=== PATIENT | male | born 1985 | race Caucasian/White ===

== ENCOUNTER 2018-06-03 11:11 | Emergency (ER) | payer OTHER ==
[~2018-06-03] VITALS: Ht 182.9 cm; Wt 106.8 kg
[2018-06-03 11:12] VITALS: Ht 182.9 cm; Wt 106.8 kg
[2018-06-03] MEDS ORDERED: LIDOCAINE 1% BUFFERED INJ 20 ML VIAL ONE (11:26)
[2018-06-03] MEDS ORDERED: DIPHTHERIA/TETANUS/PERTUSSIS 0.5 ML SYR/VIAL IM. ONE (11:45)
[2018-06-03] MEDS ORDERED: LIDO/EPINEPHRINE/SOD BICARB 20 ML VIAL INFIL ONE (11:45)
[2018-06-03] MEDS ORDERED: KETOROLAC TROMETHAMINE 60 MG/2 ML VIAL IM STA (11:49)
[2018-06-03] MEDS ORDERED: DIPH1TAB87 PO (12:05)
--- NOTE | 2018-06-03 12:51 | DIAGNOSTIC IMAGING REPORT ---
LEFT FEMUR 3 VIEWS HISTORY: Left femur pain. LEFT, EVAL FX COMPARISON: None. FINDINGS: There is no fracture or dislocation. Soft swelling within the anterior distal thigh. No radiopaque foreign bodies. IMPRESSION: No fracture or dislocation within the left femur. Electronically signed by: Joel Be M.D. 06/03/2018 12:49 PM Dictated Date/Time: 06/03/2018 12:47 PM
--- NOTE | 2018-06-03 14:04 | EMERGENCY ROOM VISIT NOTE ---
ED Visit Note First contact with patient: 11:28 CHIEF COMPLAINT: Left upper thigh laceration at work 1 hour ago HISTORY OF PRESENT ILLNESS: Patient is an otherwise healthy 32-year-old male who presents the emergency department accompanied by his significant other for evaluation of a left upper thigh laceration that occurred about an hour ago. 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 He states that he was hit in the left thigh with a bucket of a tractor, and pinched between the bucket and the tailgate of another vehicle. His pants were completely torn. He has a laceration to the left upper thigh. Bleeding has been controlled. He notes a constant, aching pain in the left thigh that he rates a 4/10. He was able to bear weight after the incident but it was difficult. He denies any numbness or tingling radiating down the left leg. He is unsure of his last tetanus vaccination. REVIEW OF SYSTEMS: Review of systems as per HPI. All other systems reviewed were negative. 10 systems reviewed. PMH: Electronic medical records are reviewed and summarized as above/below. See Problem List. Unsure of his last tetanus. SOCIAL HISTORY: Patient living at home with his girlfriend and daughter. Uses chewing tobacco. PHYSICAL EXAM: Vital Signs: Reviewed Nurse's notes. CONSTITUTIONAL: Patient is a slightly anxious, otherwise well-appearing 32-year-old male who is awake and alert and in moderate distress due to his stated complaint. INTEGUMENTARY: Examination of the proximal medial left thigh note an 8.5 cm gaping laceration with subcutaneous tissue present. He does have some significant ecchymosis and abrasions surrounding. No foreign material in the wound. No active bleeding. MUSCULOSKELETAL: Patient has tenderness to palpation of the left thigh, around the site of the laceration. Left knee and left hip are nontender to palpation. Hip and knee range of motion are full. Patient antalgic gait. The left lower extremity is neurovascularly intact. EMERGENCY DEPARTMENT COURSE: The patient was seen and examined as above. He was medicated with Toradol 60 mg IM. He declined narcotics. X-rays of the left femur were obtained and negative for acute fracture or bony abnormality. Using sterile technique, the wound was prepped with Betadine and draped sterilely. Wound was anesthetized with 1% buffered lidocaine with epinephrine. When adequate anesthesia was obtained, the wound was explored thoroughly. There was significant subcutaneous tissue present, subcu could be removed, and the fascial layer of the anterior thigh was visible, but there was no muscular or fascial injury. Wound was irrigated copiously using normal saline solution under high pressure irrigation. The subcutaneous layers were reapproximated using multiple 2-0 Vicryl, then the skin was reapproximated using 15 skin brent. Verbal and written wound care instructions were outlined with the patient and his significant other, as well as signs and symptoms of compartment syndrome for which the patient has not at this time. He was placed on crutches. His wound was dressed with bacitracin and a light dressing, then his thigh was wrapped with an Alexis wrap and a hip spica fashion. He was instructed on a weight-bear as tolerated gait using the crutches. He was advised to re- check with orthopedics as covered by his Worker's Compensation coverage later this week for recheck of his injury and wound, and to be cleared to return to work. Differential diagnoses entertained femur fracture, laceration, crush injury, compartment syndrome, nerve or vascular compromise, among others. Medication reconciliation: I attest that I have personally reviewed the patient' s current medication list. Blood pressure screening: Patient was found to have a slightly elevated blood pressure due to circumstances. I do not believe that the patient requires hypertension monitoring. LEFT FEMUR 3 VIEWS HISTORY: Left femur pain. LEFT, EVAL FX COMPARISON: None. FINDINGS: There is no fracture or dislocation. Soft swelling within the anterior distal thigh. No radiopaque foreign bodies. IMPRESSION: No fracture or dislocation within the left femur. Current/Historical Medications Scheduled Diphenhydramine Hcl (Benadryl Allergy), 1 TAB PO UD Scheduled PRN Ibuprofen Tab (Motrin), 800 MG PO TIDM PRN for Pain Allergies Coded Allergies: No Known Allergies (Unverified , 06/03/18) Vital Signs Date Time Temp Pulse Resp B/P (MAP) Pulse Ox O2 Delivery O2 Flow Rate FiO2 06/03/18 14:35 36.7 76 16 131/77 96 06/03/18 14:34 76 16 131/77 96 Room Air 06/03/18 12:35 76 16 140/80 96 Room Air 06/03/18 11:12 36.7 106 18 158/98 96 Room Air Medications Administered Medications (Trade) Dose Ordered Sig/Jett Route Start Time Stop Time Status Last Admin Dose Admin Diphtheria/ Pertussis/Tetanus Vacc (Adacel Inj) 0.5 ml ONCE ONCE IM. 06/03/18 11:45 06/03/18 11:46 DC 06/03/18 12:31 0.5 ML Ketorolac Tromethamine (Toradol Inj) 60 mg NOW STAT IM 06/03/18 11:49 06/03/18 11:51 DC 06/03/18 12:30 60 MG Departure Information Impression Primary Impression: Laceration of left thigh Additional Impressions: Crush injury of leg Work related injury Prescriptions Ibuprofen Tab (MOTRIN) 800 Mg Tab 800 MG PO TIDM Y for Pain, #90 TAB Prov: Stepahni Monte PA 06/03/18 Referrals No Doctor, Assigned (PCP) Patient Instructions [facility] Additional Instructions Ibuprofen(Motrin, Advil) may be used for fever or pain. Use 800mg 3 times daily with food as needed. Avoid using more than 2400mg in a 24 hour period. Do not use 2400mg per day for more than three consecutive days without physician direction. Prolonged inappropriate use can lead to stomach upset or ulcers. This medication can be taken if you need to drive, work, or perform activities which may be dangerous when taking narcotic pain medication. (AND/OR) Acetaminophen(Tylenol) may be used for fever or pain. Use 1000mg every six hours as needed. Avoid using more than 3000mg in a 24 hour period. This medication can be taken if you need to drive, work, or perform activities which may be dangerous when taking narcotic pain medication. Ice compresses for 20 minutes at a time four times daily for 2-3 days. Use the crutches as instructed. Use the Alexis wrap for support and compression to help reduce swelling and bruising. Rest and elevate your injury. Keep wound clean and dry. Do not allow any crusting or dried blood to accumulate on brent. Clean gently with mild soap and water daily. Do not immerse in standing water. Use an antibiotic ointment for 3-4 days, then let wound dry. Staple removal in 14 days. Continue current medications. Return to the ER immediately for any numbness, tingling, severe pain, extreme swelling in the extremity or for any signs of infection including increasing redness, warmth, puslike drainage. Follow-up with orthopedic surgery as covered by your Worker's Compensation insurance in 2-3 days for recheck of your injury and wound recheck, and to be cleared to return to work. Problem Qualifiers Primary Impression: Laceration of left thigh Encounter type: initial encounter Qualified Codes: S71.112A - Laceration without foreign body, left thigh, initial encounter Additional Impressions: Crush injury of leg Encounter type: initial encounter Laterality: left Qualified Codes: S87.82XA - Crushing injury of left lower leg, initial encounter
[2018-06-03] MEDS ORDERED: IBUP-1451 PO (14:06)
[2018-06-03 14:35] VITALS: BP 131/77; PULSE 76; TEMP 36.7; O2SAT 96
== END 2018-06-03 14:37 | disposition home or self-care (01) ==
LOC: C.EDB 11:12 → C.EDD 14:37
DX: S71.112A Laceration without foreign body, left thigh, initial encounter (principal); S87.82XA Crushing injury of left lower leg, initial encounter; W23.0XXA Caught, crushed, jammed, or pinched between moving objects, initial encounter; Y99.0 Civilian activity done for income or pay; Z23 Encounter for immunization

== ENCOUNTER 2018-06-08 21:58 | Emergency (ER) | payer OTHER ==
[~2018-06-08] VITALS: Ht 182.9 cm; Wt 106.3 kg
[~2018-06-08 21:58] MED LIST: DIPH1TAB87 PO; IBUP-1451 PO
[2018-06-08 22:03] VITALS: TEMP 36.8; Ht 182.9 cm; Wt 106.3 kg
[2018-06-08] MEDS ORDERED: SULFAMETHOXAZOLE/TRIMETHOPRIM DS 800/160MG TAB PO STA (22:15)
[2018-06-08] MEDS ORDERED: CEFTRIAXONE SOD INJ 1 GM ADDVIAL IV STA (22:15)
--- NOTE | 2018-06-08 22:17 | EMERGENCY ROOM VISIT NOTE ---
History Report prepared by Catherine: Miguel Clark Under the Supervision of: Dr. Onur Santacruz M.D. First contact with patient: 22:07 Chief Complaint: INFECTION Stated Complaint: INFECTION LEFT THIGH History of Present Illness The patient is a 32 year old male who presents to the Emergency Room with complaints of a possible left thigh infection and pain. The patient notes a few days ago he injured his leg and it required brent to be placed at another facility due to the laceration that occurred. He states he followed up with Orthopedics yesterday. He states he hasn't been prescribed antibiotics for this. He states the past x24 hours he has started to feel chilled and increased pain. He denies a fever. The patient also does not a cough the past few days. Source of History: patient Onset: few days Position: leg (left) Symptom Intensity: moderate Quality: ache Timing: constant Associated Symptoms: + chills, + cough, No fevers, No chest pain, No SOB, No nausea, No vomiting, No abdominal pain, No diarrhea, No urinary symptoms Review of Systems See HPI for pertinent positives & negatives. A total of 10 systems reviewed and were otherwise negative. Constitutional: + chills, No fever Respiratory: + cough, No shortness of breath Cardiovascular: No chest pain Abdomen: No pain, No nausea, No vomiting, No diarrhea Integumentary: No rash Past Medical & Surgical Medical Problems: (1) No Known Active Medical Problems Social History Smoking Status: Never Smoker Current/Historical Medications Scheduled Bacitracin (Topical) (Bacitracin), 1 APPLN TOP BID Cephalexin Monohydrate (Keflex), 500 MG PO QID Sulfa/Trimethoprim (Bactrim Ds 800MG/160MG), 1 TAB PO BID Scheduled PRN Acetaminophen (Tylenol), 1,000 MG PO Q6H PRN for Pain Diphenhydramine Hcl (Benadryl Allergy), 25 MG PO UD PRN for Allergic Reaction Ibuprofen Tab (Motrin), 800 MG PO TIDM PRN for Pain Allergies Coded Allergies: No Known Allergies (Unverified , 06/03/18) Physical Exam Vital Signs Date Time Temp Pulse Resp B/P (MAP) Pulse Ox O2 Delivery O2 Flow Rate FiO2 06/09/18 01:10 81 139/58 99 06/09/18 00:00 66 126/76 99 Room Air 06/08/18 22:03 36.8 93 18 153/90 97 Room Air Physical Exam GENERAL: Awake, alert, well-appearing, in no acute distress HENT: Normocephalic, atraumatic. Oropharynx unremarkable. EYES: Normal conjunctiva. Sclera non-icteric. NECK: Supple. No nuchal rigidity. FROM. No JVD. RESPIRATORY: Clear to auscultation. CARDIAC: Regular rate, normal rhythm. Extremities warm and well perfused. Pulses equal. ABDOMEN: Soft, non-distended. No tenderness to palpation. No rebound or guarding. No masses. RECTAL: Deferred. MUSCULOSKELETAL: Chest examination reveals no tenderness. The back is symmetrical on inspection without obvious abnormality. There is no CVA tenderness to palpation. No joint edema. LOWER EXTREMITIES: Calves are equal size bilaterally and non-tender. No edema. No discoloration. NEURO: Normal sensorium. No sensory or motor deficits noted. SKIN: large what appears to be hematoma extending away from the laceration itself and extends down into the lower thigh with a large amount of bruising; the wound itself appears to be healing well. Medical Decision & Procedures ER Provider Diagnostic Interpretation: CT extremity of the left lower: No organized fluid collections or abscess. There is no area of low density fluid immediately superficial to the anterior thigh musculature within the deeper portion of the subcutaneous fat. Neurovascular structures are unremarkable. No adenopathy no other masses. No suspicious radiopaque foreign bodies. No bony abnormalities. Laboratory Results 06/08/18 22:29 Red Blood Count 4.80, Mean Corpuscular Volume 93.3, Mean Corpuscular Hemoglobin 33.1, Mean Corpuscular Hemoglobin Concent 35.5, Mean Platelet Volume 11.0, Neutrophils (%) (Auto) 67.9, Lymphocytes (%) (Auto) 18.6, Monocytes (%) (Auto) 9.1, Eosinophils (%) (Auto) 4.0, Basophils (%) (Auto) 0.1, Neutrophils # (Auto) 5.09, Lymphocytes # (Auto) 1.39, Monocytes # (Auto) 0.68, Eosinophils # (Auto) 0.30, Basophils # (Auto) 0.01 06/08/18 22:29 Test 06/08/18 22:29 06/08/18 23:55 White Blood Count 7.49 K/uL (4.8-10.8) Red Blood Count 4.80 M/uL (4.7-6.1) Hemoglobin 15.9 g/dL (14.0-18.0) Hematocrit 44.8 % (42-52) Mean Corpuscular Volume 93.3 fL (80-100) Mean Corpuscular Hemoglobin 33.1 pg (25-34) Mean Corpuscular Hemoglobin Concent 35.5 g/dl (32-36) Platelet Count 211 K/uL (130-400) Mean Platelet Volume 11.0 fL (7.4-10.4) Neutrophils (%) (Auto) 67.9 % Lymphocytes (%) (Auto) 18.6 % Monocytes (%) (Auto) 9.1 % Eosinophils (%) (Auto) 4.0 % Basophils (%) (Auto) 0.1 % Neutrophils # (Auto) 5.09 K/uL (1.4-6.5) Lymphocytes # (Auto) 1.39 K/uL (1.2-3.4) Monocytes # (Auto) 0.68 K/uL (0.11-0.59) Eosinophils # (Auto) 0.30 K/uL (0-0.5) Basophils # (Auto) 0.01 K/uL (0-0.2) RDW Standard Deviation 42.1 fL (36.4-46.3) RDW Coefficient of Variation 12.3 % (11.5-14.5) Immature Granulocyte % (Auto) 0.3 % Immature Granulocyte # (Auto) 0.02 K/uL (0.00-0.02) Prothrombin Time 10.1 SECONDS (9.0-12.0) Prothromb Time International Ratio 1.0 (0.9-1.1) Anion Gap 8.0 mmol/L (3-11) Est Creatinine Clear Calc Drug Dose 136.6 ml/min Estimated GFR () 119.0 Estimated GFR (Non- 102.7 BUN/Creatinine Ratio 18.8 (10-20) Calcium Level 9.0 mg/dl (8.5-10.1) Total Bilirubin 0.4 mg/dl (0.2-1) Direct Bilirubin 0.1 mg/dl (0-0.2) Aspartate Amino Transf (AST/SGOT) 31 U/L (15-37) Alanine Aminotransferase (ALT/SGPT) 66 U/L (12-78) Alkaline Phosphatase 67 U/L (45-117) Total Creatine Kinase 98 U/L (39-308) Total Protein 8.4 gm/dl (6.4-8.2) Albumin 3.8 gm/dl (3.4-5.0) Lipase 141 U/L (73-393) Urine Color YELLOW Urine Appearance CLEAR (CLEAR) Urine pH 7.0 (4.5-7.5) Urine Specific [place] 1.010 (1.000-1.030) Urine Protein NEG (NEG) Urine Glucose (UA) NEG (NEG) Urine Ketones NEG (NEG) Urine Occult Blood NEG (NEG) Urine Nitrite NEG (NEG) Urine Bilirubin NEG (NEG) Urine Urobilinogen NEG (NEG) Urine Leukocyte Esterase NEG (NEG) Medications Administered Medications (Trade) Dose Ordered Sig/Jett Route Start Time Stop Time Status Last Admin Dose Admin Ceftriaxone Sodium (Rocephin Inj) 1 gm NOW STAT IV 06/08/18 22:15 06/08/18 22:16 DC 06/08/18 23:17 1 GM Trimethoprim/ Sulfamethoxazole (Septra Ds 800/ 160MG Tab) 1 tab NOW STAT PO 06/08/18 22:15 06/08/18 22:16 DC 06/08/18 23:17 1 TAB Medical Decision This is a 32-year-old male who presents emergency department complaining of subjective fevers and chills at home. The patient had brent applied to a thigh laceration. He did follow-up with orthopedics however did not receive any antibiotics for the thigh. He has not had any drainage coming from the wound. Here in the emergency department an IV was established. I will note that the patient is afebrile here and does not have an elevation in his white blood cell count. Regardless he was started on Rocephin and Bactrim here. We did obtain a CAT scan of the patient's lower extremity. This was read by stat read as no free fluid collections. In addition the patient does not have fever here and with no white blood cell count I feel he can be safely discharged home. There is no evidence of infection at the staple site and there is no pus on physical examination. I will place the patient on Keflex and Bactrim and stressed the need for follow-up with Dr. Witt's office. Patient was in agreement with the treatment plan. Medication Reconcilliation Current Medication List: was personally reviewed by me Blood Pressure Screening Patient's blood pressure: Elevated blood pressure Blood pressure disposition: Referred to PCP Impression Primary Impression: Laceration of left thigh Scribe Attestation The scribe's documentation has been prepared under my direction and personally reviewed by me in its entirety. I confirm that the note above accurately reflects all work, treatment, procedures, and medical decision making performed by me. Departure Information Dispostion Home / Self-Care Prescriptions Sulfa/Trimethoprim (Bactrim Ds 800MG/160MG) Tab 1 TAB PO BID for 10 Days, #20 TAB Prov: Onur Santacruz MD 06/09/18 Cephalexin Monohydrate (KEFLEX) 500 Mg Cap 500 MG PO QID for 10 Days, #40 CAP Prov: Onur Santacruz MD 06/09/18 Bacitracin (Topical) (BACITRACIN) 500 Unit/Gm Oin 1 APPLN TOP BID for 7 Days, #30 GM Prov: Onur Santacruz MD 06/09/18 Referrals No Doctor, Assigned (PCP) Patient Instructions My [facility] Problem Qualifiers Primary Impression: Laceration of left thigh Encounter type: initial encounter Qualified Codes: S71.112A - Laceration without foreign body, left thigh, initial encounter
[2018-06-08] MEDS ORDERED: OPTIRAY 320 IV PRN (22:30)
[2018-06-08] MEDS ORDERED: ACET-1256 PO (22:32)
[2018-06-08 22:48] LABS: BASO % 0.1 %; BASO ABS # 0.01 K/uL (0-0.2); HEMATOCRIT 44.8 % (42-52); HEMOGLOBIN 15.9 g/dL (14.0-18.0); IG# 0.02 K/uL (0.00-0.02); LYMPH % 18.6 %; LYMPH ABS # 1.39 K/uL (1.2-3.4); MEAN CELL VOLUME 93.3 fL (80-100); MEAN CORPUSCULAR HEMOGLOBIN 33.1 pg (25-34); MEAN CORPUSCULAR HGB CONC 35.5 g/dl (32-36); MONO % 9.1 %; MONO ABS # 0.68 K/uL (0.11-0.59); NEUT % 67.9 %; NEUT ABS # 5.09 K/uL (1.4-6.5); PLATELET COUNT 211 K/uL (130-400); RED CELL DISTRIBUTION WIDTH CV 12.3 % (11.5-14.5); RED CELL DISTRIBUTION WIDTH SD 42.1 fL (36.4-46.3); WHITE BLOOD COUNT 7.49 K/uL (4.8-10.8)
[2018-06-08 23:08] LABS: ALBUMIN 3.8 gm/dl (3.4-5.0); CREATININE 0.96 mg/dl (0.60-1.40); POTASSIUM 4.2 mmol/L (3.5-5.1); TOTAL PROTEIN 8.4 gm/dl (6.4-8.2)
[2018-06-09] MEDS ORDERED: BACI500O11 TOP (00:57)
[2018-06-09] MEDS ORDERED: SULF800T23 PO (00:57)
[2018-06-09] MEDS ORDERED: CEPH500C2 PO (00:57)
[2018-06-09 01:10] VITALS: BP 139/58; PULSE 81; O2SAT 99
--- NOTE | 2018-06-09 08:29 | DIAGNOSTIC IMAGING REPORT ---
CT OF THE LEFT THIGH WITH CONTRAST CLINICAL HISTORY: Hematoma. Left thigh infection. COMPARISON STUDY: Left femur radiographs June 03, 2018. TECHNIQUE: Axial images of the left thigh were obtained following intravenous injection of 118 cc Optiray 320 IV. Sagittal and coronal reconstructions were viewed. FINDINGS: No acute fracture of the left femur is identified. No radiopaque foreign body is noted. There is no evidence for osteomyelitis of the left femur. Skin brent within the anterior left thigh are noted with a small amount of subcutaneous gas. There is a small amount of low-attenuation fluid overlying the fascia, overlying the left rectus femoris and sartorius muscles. There may be minimal fluid within the anterior aspect of the left rectus femoris. This is suboptimally assessed by CT. No rim-enhancing fluid collection is identified. IMPRESSION: 1. No acute fracture or evidence of osteomyelitis within the left femur. 2. Skin brent within a laceration of the left thigh with a small amount of subcutaneous gas. No radiopaque foreign body. 3. Low-attenuation fluid along the fascia overlying the left rectus femoris and sartorius muscles. This fluid is nonspecific and sterility cannot be assessed by CT but no rim enhancement to suggest abscess. Possible small amount of fluid within the rectus femoris. A muscular injury cannot be excluded. Electronically signed by: James Ray M.D. 06/09/2018 8:28 AM Dictated Date/Time: 06/09/2018 8:18 AM
[2018-06-10] MEDS ORDERED: IBUP-1451 PO (21:01)
[2018-06-10] MEDS ORDERED: SULF800T23 PO (21:02)
[2018-06-10] MEDS ORDERED: CEPH500C2 PO (21:04)
[2018-06-10] MEDS ORDERED: BACI500O11 TOP (21:05)
== END 2018-06-09 01:11 | disposition home or self-care (01) ==
LOC: C.EDB 22:01 → C.EDA 06-09 01:11
DX: R50.9 Fever, unspecified (principal); S71.112A Laceration without foreign body, left thigh, initial encounter; X58.XXXA Exposure to other specified factors, initial encounter; R03.0 Elevated blood-pressure reading, without diagnosis of hypertension

== ENCOUNTER 2018-06-10 20:32 | Inpatient (IN) | payer OTHER, BC ==
[~2018-06-10] VITALS: Ht 182.9 cm; Wt 106.7 kg
[~2018-06-10 20:32] MED LIST changes: +ACET-1256 PO; +BACI500O11 TOP; +CEPH500C2 PO; +SULF800T23 PO
[2018-06-10] MEDS ORDERED: IBUP-1451 PO (21:01)
[2018-06-10] MEDS ORDERED: SULF800T23 PO (21:02)
[2018-06-10] MEDS ORDERED: CEPH500C2 PO (21:04)
[2018-06-10] MEDS ORDERED: BACI500O11 TOP (21:05)
--- NOTE | 2018-06-10 21:22 | EMERGENCY ROOM VISIT NOTE ---
History Report prepared by Catherine: Eve Butterfield Under the Supervision of: Dr. Sanford Ryan M.D. First contact with patient: 21:07 Chief Complaint: INFECTION Stated Complaint: INFECTION IN THIGH Nursing Triage Summary: Patient had laceration closed sunday with brent to left thigh. Now having purulent drainage History of Present Illness The patient is a 32 year old white male with no significant past medical history who presents to the ED with a cc of persistent R leg drainage beginning today. The patient was seen in the ED 7 days ago for a R leg laceration, and 2 days ago was seen for infection and started Bactrim & Keflex, at which time his WBC was [address] of leg was negative. He reports he initially injured his leg last week on the bucket of a tractor, and the wound began draining a dark red/ mud-colored fluid today, which prompted him to come to the ED. He notes the drainage increases with movement. The patient reports he saw Dr. Shannon 5 days ago in the office, and the redness of his leg has worsened since that visit. He denies fevers, chills, cough, difficulty with urination or BM. The patient reports Ibuprofen and Tylenol relieved his pain. Source of History: patient Onset: today Position: leg (right) Quality: other (drainage) Timing: other (persistent) Modifying Factors (Worsening): movement Modifying Factors (Relieving): tylenol, ibuprofen Associated Symptoms: No fevers, No chills, No cough, No urinary symptoms Note: Associated symptom: worsening redness of leg. Denies: difficulty with bowel movements. Review of Systems See HPI for pertinent positives and negatives. A total of ten systems were reviewed and were otherwise negative. Past Medical & Surgical Medical Problems: (1) Cellulitis (2) No Known Active Medical Problems Family History No pertinent family history stated. Social History Smoking Status: Current Every Day Smoker Alcohol Use: none Marital Status: in relationship Housing Status: lives with family Occupation Status: employed Current/Historical Medications Scheduled Bacitracin (Topical) (Bacitracin), 1 APPLN TOP BID Cephalexin Monohydrate (Keflex), 500 MG PO QID Sulfa/Trimethoprim (Bactrim Ds 800MG/160MG), 1 TAB PO BID Scheduled PRN Acetaminophen (Tylenol), 1,000 MG PO Q6H PRN for Pain Diphenhydramine Hcl (Benadryl Allergy), 25 MG PO UD PRN for Allergic Reaction Ibuprofen Tab (Motrin), 800 MG PO TIDM PRN for Pain Allergies Coded Allergies: No Known Allergies (Unverified , 06/03/18) Physical Exam Vital Signs Date Time Temp Pulse Resp B/P (MAP) Pulse Ox O2 Delivery O2 Flow Rate FiO2 06/10/18 22:09 83 18 140/75 99 Room Air 06/10/18 20:37 36.7 94 18 145/83 99 Room Air Physical Exam GENERAL: Awake, alert, well-appearing, NAD HENT: Normocephalic, atraumatic. EYES: Normal conjunctiva. Sclera non-icteric. PERRL. No anisocoria. NECK: Supple. No nuchal rigidity. FROM. RESPIRATORY: CTAB, no rhonchi, wheezing, crackles CARDIAC: RRR, no MRG ABDOMEN: Soft, NTND, BS+ MSK: No chest wall TTP. L leg has 15 brent. 10x15 cm area of erythema to L medial thigh, serosanguineous, questionably purulent drainage. NEURO: GCS 15, CN 2-12 intact, moves all 4s on command SKIN: No rash or jaundice noted. Medical Decision & Procedures ER Provider Diagnostic Interpretation: Radiology results as stated below per my review and radiologist interpretation: LEFT THIGH ULTRASOUND CLINICAL HISTORY: prior wound w/ erythema and drainage COMPARISON STUDY: Left lower extremity CT 06/08/2018. FINDINGS: There is a 15 x 9 x 2 cm fluid collection which is deep to the subcutaneous fat which and abuts the thigh musculature. This does not extend into the thigh musculature. This is slightly complex demonstrating internal echoes/septations. This is similar in size to the prior study. This is deep to the incision. IMPRESSION: No significant change in the 15 x 9 x 2 cm slightly complex fluid collection located between the subcutaneous fat and thigh musculature. Electronically signed by: Joel Be M.D. 06/10/2018 10:55 PM Dictated Date/Time: 06/10/2018 10:52 PM Laboratory Results Test 06/10/18 21:47 06/10/18 21:55 06/10/18 22:45 Total Bilirubin 0.3 mg/dl (0.2-1) Direct Bilirubin 0.1 mg/dl (0-0.2) Aspartate Amino Transf (AST/SGOT) 30 U/L (15-37) Alanine Aminotransferase (ALT/SGPT) 65 U/L (12-78) Alkaline Phosphatase 76 U/L (45-117) Total Protein 8.5 gm/dl (6.4-8.2) Albumin 3.9 gm/dl (3.4-5.0) Lipase 158 U/L (73-393) Venous Blood pH 7.34 (7.36-7.41) Venous Blood Partial Pressure CO2 59 mmHg (38.0-50.0) Venous Blood Partial Pressure O2 30 mmHg Venous Blood HCO3 31 mmol/L Venous Blood Oxygen Saturation < 60.0 % Venous Blood Base Excess 3.9 mEq/L Lactic Acid Level 1.3 mmol/L (0.4-2.0) Urine Color YELLOW Urine Appearance CLEAR (CLEAR) Urine pH 5.0 (4.5-7.5) Urine Specific [place] 1.023 (1.000-1.030) Urine Protein NEG (NEG) Urine Glucose (UA) NEG (NEG) Urine Ketones NEG (NEG) Urine Occult Blood NEG (NEG) Urine Nitrite NEG (NEG) Urine Bilirubin NEG (NEG) Urine Urobilinogen NEG (NEG) Urine Leukocyte Esterase NEG (NEG) Laboratory results reviewed by me Medications Administered Medications (Trade) Dose Ordered Sig/Jett Route Start Time Stop Time Status Last Admin Dose Admin Sodium Chloride 1,000 ml @ 999 mls/hr Q1H1M STAT IV 06/10/18 21:24 06/10/18 22:24 DC 06/10/18 22:01 999 MLS/HR Ondansetron HCl (Zofran Inj) 4 mg NOW STAT IV 06/10/18 21:24 06/10/18 21:26 DC 06/10/18 22:00 4 MG Ketorolac Tromethamine (Toradol Inj) 30 mg NOW STAT IV 06/10/18 21:24 06/10/18 21:26 DC 06/10/18 22:00 30 MG Vancomycin HCl 2000 mg/Sodium Chloride 540 ml @ 200 mls/hr 2124 IV 06/10/18 21:24 06/11/18 00:05 DC 06/10/18 22:01 200 MLS/HR Acetaminophen (Tylenol Tab) 650 mg Q4H PRN PO 06/10/18 23:45 07/10/18 23:44 06/11/18 01:18 650 MG Sodium Chloride 1,000 ml @ 75 mls/hr [id number] IV 06/10/18 23:45 07/10/18 23:44 06/11/18 01:29 75 MLS/HR ED Course 2111: The patient was evaluated in room A4B. A complete history and physical exam was performed. 2201: I reevaluated and updated the patient. 2311: Discussed the patient's case with Maranda Bates hospitalist. The patient will be evaluated for further treatment and disposition. Medical Decision The patient is a 32 year old white male with no significant past medical history who presents to the ED with a cc of R leg drainage beginning today. Etiologies such as cellulitis, abscess, MRSA infection, DVT, necrotizing fasciitis, dermatitis, drug eruption, as well as others were entertained. Patient was seen and evaluated the bedside. The patient had been seen back on the for a laceration secondary to a tractor bucket. Patient had been washed out closed and follow-up with Dr. Shannon last Sunday was deemed okay. Patient did return for evaluation on June 08 and was started on Bactrim and Keflex. Patient also had a negative CT scan at that time. Patient does have expanding redness erythema and questionable purulent discharge. Patient did blood work completed along with blood and blood cultures and VBG and lactate. Patient also did have an a nonvascular ultrasound to further evaluate the area. Patient's white blood cell count within normal limits. Patient is fairly normal VBG and lactate. Patient was given a first dose of vancomycin. US shows fluid collection that compared to prior CT is fairly unchanged. Patient is well appearing but given expanding nature of cellulitic change, h/o dirty wound, and failure of outpatient treatment of abx believe patient would benefit from further eval and treatment. I did speak w/ crane ladle person hospitalist who agreed to eval, trx, and admit patient. Discussed patient may benefit from surgical consult given fluid collection. Medication Reconcilliation Current Medication List: was personally reviewed by me Blood Pressure Screening Patient's blood pressure: Elevated blood pressure Blood pressure disposition: Referred to PCP (referred to hospitalist) Consults Time Called: 2301 Consulting Physician: Maranda Bates hospitalist Returned Call: 2311 Discussed the patient's case with Dr. Goodson, [facility] hospitalist. The patient will be evaluated for further treatment and disposition. Impression Primary Impression: Cellulitis Additional Impressions: Encounter for tobacco use cessation counseling Groin fluid collection Scribe Attestation The scribe's documentation has been prepared under my direction and personally reviewed by me in its entirety. I confirm that the note above accurately reflects all work, treatment, procedures, and medical decision making performed by me. Departure Information Dispostion Being Evaluated By Surgeon Referrals No Doctor, Assigned (PCP) Patient Instructions My [facility] Problem Qualifiers Primary Impression: Cellulitis Site of cellulitis: extremity Site of cellulitis of extremity: lower extremity Laterality: left Qualified Codes: L03.116 - Cellulitis of left lower limb
[2018-06-10] MEDS ORDERED: SODIUM CHLORIDE 0.9% 1000ML 1,000 ML IV STA (21:24)
[2018-06-10] MEDS ORDERED: KETOROLAC TROMETHAMINE 30 MG/ML VIAL IV STA (21:24)
[2018-06-10] MEDS ORDERED: VANCOMYCIN IV 2,000 MG in SODIUM CHLORIDE 0.9% 250ML 250 ML IV STA (21:24)
[2018-06-10] MEDS ORDERED: ONDANSETRON INJ 2 MG/ML 2 ML VIAL IV STA (21:24)
[2018-06-10] MEDS ORDERED: VANCOMYCIN IV 2,000 MG in SODIUM CHLORIDE 0.9% 500ML 500 ML IV SCH (21:24)
[2018-06-10] MEDS ORDERED: VANCOMYCIN CONSULT ACTIVE PRN ×2 (21:30→23:45)
[2018-06-10 22:10] LABS: BASO % 0.1 %; BASO ABS # 0.01 K/uL (0-0.2); EOS % 2.6 %; EOS ABS # 0.23 K/uL (0-0.5); HEMATOCRIT 44.1 % (42-52); HEMOGLOBIN 15.5 g/dL (14.0-18.0); IG# 0.03 K/uL (0.00-0.02); LYMPH % 13.8 %; LYMPH ABS # 1.22 K/uL (1.2-3.4); MEAN CELL VOLUME 92.6 fL (80-100); MEAN CORPUSCULAR HEMOGLOBIN 32.6 pg (25-34); MEAN CORPUSCULAR HGB CONC 35.1 g/dl (32-36); MEAN PLATELET VOLUME 10.9 fL (7.4-10.4); MONO % 10.8 %; MONO ABS # 0.95 K/uL (0.11-0.59); NEUT % 72.4 %; NEUT ABS # 6.38 K/uL (1.4-6.5); PLATELET COUNT 237 K/uL (130-400); RED CELL DISTRIBUTION WIDTH SD 40.8 fL (36.4-46.3); WHITE BLOOD COUNT 8.82 K/uL (4.8-10.8)
[2018-06-10 22:30] LABS: ALBUMIN 3.9 gm/dl (3.4-5.0); CALCIUM 8.8 mg/dl (8.5-10.1); CREATININE 0.99 mg/dl (0.60-1.40); POTASSIUM 4.2 mmol/L (3.5-5.1); TOTAL PROTEIN 8.5 gm/dl (6.4-8.2)
--- NOTE | 2018-06-10 22:56 | DIAGNOSTIC IMAGING REPORT ---
LEFT THIGH ULTRASOUND CLINICAL HISTORY: prior wound w/ erythema and drainage COMPARISON STUDY: Left lower extremity CT 06/08/2018. FINDINGS: There is a 15 x 9 x 2 cm fluid collection which is deep to the subcutaneous fat which and abuts the thigh musculature. This does not extend into the thigh musculature. This is slightly complex demonstrating internal echoes/septations. This is similar in size to the prior study. This is deep to the incision. IMPRESSION: No significant change in the 15 x 9 x 2 cm slightly complex fluid collection located between the subcutaneous fat and thigh musculature. Electronically signed by: Joel Be M.D. 06/10/2018 10:55 PM Dictated Date/Time: 06/10/2018 10:52 PM
[2018-06-10] MEDS ORDERED: POLYETHYLENE (MIRALAX) 17 GM PACK PO PRN (23:45)
[2018-06-10] MEDS ORDERED: ALUMINUM/MAGNESIUM/SIMETH (MAALOX MAX) 30 ML UDC PO PRN (23:45)
[2018-06-10] MEDS ORDERED: ONDANSETRON INJ 2 MG/ML 2 ML VIAL IV PRN (23:45)
[2018-06-11] MEDS: ACETAMINOPHEN 325 MG TAB PO PRN ×2 (01:18→11:26)
[2018-06-11] MEDS: SODIUM CHLORIDE 0.9% 1000ML 1,000 ML IV SCH ×2 (01:29→13:28)
[2018-06-11 02:16] VITALS: BP 126/74; PULSE 86; TEMP 36.8; O2SAT 97; BMI 31.9
[2018-06-11] MEDS: VANCOMYCIN IV 1,750 MG in SODIUM CHLORIDE 0.9% 500ML 500 ML IV SCH ×3 (04:58→20:41)
[2018-06-11] MEDS ORDERED: HEPARIN SOD 5000 UNIT/0.5 ML CARP SQ SCH (06:00)
[2018-06-11 06:37] LABS: BASO % 0.1 %; BASO ABS # 0.01 K/uL (0-0.2); EOS % 2.3 %; EOS ABS # 0.19 K/uL (0-0.5); HEMATOCRIT 38.6 % (42-52); HEMOGLOBIN 13.4 g/dL (14.0-18.0); IG# 0.02 K/uL (0.00-0.02); LYMPH ABS # 1.14 K/uL (1.2-3.4); MEAN CELL VOLUME 93.2 fL (80-100); MEAN CORPUSCULAR HEMOGLOBIN 32.4 pg (25-34); MEAN CORPUSCULAR HGB CONC 34.7 g/dl (32-36); MEAN PLATELET VOLUME 11.1 fL (7.4-10.4); MONO % 12.8 %; MONO ABS # 1.04 K/uL (0.11-0.59); NEUT % 70.6 %; NEUT ABS # 5.74 K/uL (1.4-6.5); PLATELET COUNT 188 K/uL (130-400); RED CELL DISTRIBUTION WIDTH CV 12.3 % (11.5-14.5); RED CELL DISTRIBUTION WIDTH SD 41.8 fL (36.4-46.3); WHITE BLOOD COUNT 8.14 K/uL (4.8-10.8)
--- NOTE | 2018-06-11 07:04 | DIAGNOSTIC IMAGING REPORT ---
ULTRASOUND BILATERAL LOWER EXTREMITY VENOUS CLINICAL HISTORY: Lower extremity erythema. COMPARISON STUDY: No priors. TECHNIQUE: Real-time, grayscale, and color Doppler sonography of the deep veins of the right and left lower extremity was performed from the inguinal crease to the calf. Compression and augmentation were utilized. FINDINGS: There is no sonographic evidence of deep venous thrombosis identified in the right or left lower extremity. The common femoral, superficial femoral, and popliteal veins are patent and normally compressible bilaterally. The greater saphenous vein and the profunda femoris vein at the junction with the common femoral vein are clear in both legs. The visualized calf veins are patent bilaterally. Prominent benign-appearing inguinal lymph nodes are incidentally noted. IMPRESSION: There is no sonographic evidence of deep venous thrombosis identified in the right or left lower extremity. Electronically signed by: Andrea Whipple M.D. 06/11/2018 7:03 AM Dictated Date/Time: 06/11/2018 7:02 AM
[2018-06-11 07:14] LABS: CREATININE 0.91 mg/dl (0.60-1.40); POTASSIUM 4.4 mmol/L (3.5-5.1)
[2018-06-11 07:26] VITALS: BP 121/70; PULSE 77; TEMP 36.9; O2SAT 98
[2018-06-11] MEDS ORDERED: BACITRACIN TOP SCH (09:00)
--- NOTE | 2018-06-11 09:37 | HISTORY & PHYSICAL EXAMINATION ---
REPORT CONTAINED A LOT OF STATIC - PLEASE REDICTATE Re Dictated MTDD
--- NOTE | 2018-06-11 09:41 | Pharmacy Progress Note ---
Pharmacy Antibiotic Consult Date of Service: Jun 11, 2018. Pharmacy Dosing Scope Pharmacy is consulted to initiate VANC IV dosing therapy, order appropriate labs and adjust drug dose/frequency. Subjective The patient is a 32 year old male admitted on Jun 10, 2018 at 23:49 ordered Vanc -IV for cellulitis of left thigh s/p L thigh laceration ~7 days ago. Pertinent PMH: laceration from farm equipment, received Bactrim/Keflex after seen in ED ~ 1 week ago. Objective Height (Feet): 6 Height (Inches): 0.00 Weight (Kilograms): 106.700 Lab Results (24hrs): Test 06/10/18 21:47 06/10/18 21:55 06/10/18 22:45 06/11/18 06:03 White Blood Count 8.82 K/uL (4.8-10.8) 8.14 K/uL (4.8-10.8) Red Blood Count 4.76 M/uL (4.7-6.1) 4.14 M/uL (4.7-6.1) Hemoglobin 15.5 g/dL (14.0-18.0) 13.4 g/dL (14.0-18.0) Hematocrit 44.1 % (42-52) 38.6 % (42-52) Mean Corpuscular Volume 92.6 fL (80-100) 93.2 fL (80-100) Mean Corpuscular Hemoglobin 32.6 pg (25-34) 32.4 pg (25-34) Mean Corpuscular Hemoglobin Concent 35.1 g/dl (32-36) 34.7 g/dl (32-36) Platelet Count 237 K/uL (130-400) 188 K/uL (130-400) Mean Platelet Volume 10.9 fL (7.4-10.4) 11.1 fL (7.4-10.4) Neutrophils (%) (Auto) 72.4 % 70.6 % Lymphocytes (%) (Auto) 13.8 % 14.0 % Monocytes (%) (Auto) 10.8 % 12.8 % Eosinophils (%) (Auto) 2.6 % 2.3 % Basophils (%) (Auto) 0.1 % 0.1 % Neutrophils # (Auto) 6.38 K/uL (1.4-6.5) 5.74 K/uL (1.4-6.5) Lymphocytes # (Auto) 1.22 K/uL (1.2-3.4) 1.14 K/uL (1.2-3.4) Monocytes # (Auto) 0.95 K/uL (0.11-0.59) 1.04 K/uL (0.11-0.59) Eosinophils # (Auto) 0.23 K/uL (0-0.5) 0.19 K/uL (0-0.5) Basophils # (Auto) 0.01 K/uL (0-0.2) 0.01 K/uL (0-0.2) RDW Standard Deviation 40.8 fL (36.4-46.3) 41.8 fL (36.4-46.3) RDW Coefficient of Variation 12.0 % (11.5-14.5) 12.3 % (11.5-14.5) Immature Granulocyte % (Auto) 0.3 % 0.2 % Immature Granulocyte # (Auto) 0.03 K/uL (0.00-0.02) 0.02 K/uL (0.00-0.02) Sodium Level 138 mmol/L (136-145) 140 mmol/L (136-145) Potassium Level 4.2 mmol/L (3.5-5.1) 4.4 mmol/L (3.5-5.1) Chloride Level 102 mmol/L (98-107) 109 mmol/L (98-107) Carbon Dioxide Level 30 mmol/L (21-32) 26 mmol/L (21-32) Anion Gap 6.0 mmol/L (3-11) 5.0 mmol/L (3-11) Blood Urea Nitrogen 13 mg/dl (7-18) 12 mg/dl (7-18) Creatinine 0.99 mg/dl (0.60-1.40) 0.91 mg/dl (0.60-1.40) Est Creatinine Clear Calc Drug Dose 133.5 ml/min 144.4 ml/min Estimated GFR () 114.7 127.0 Estimated GFR (Non- 99.0 109.6 BUN/Creatinine Ratio 12.8 (10-20) 13.1 (10-20) Random Glucose 88 mg/dl (70-99) 95 mg/dl (70-99) Calcium Level 8.8 mg/dl (8.5-10.1) 8.0 mg/dl (8.5-10.1) Total Bilirubin 0.3 mg/dl (0.2-1) Direct Bilirubin 0.1 mg/dl (0-0.2) Aspartate Amino Transf (AST/SGOT) 30 U/L (15-37) Alanine Aminotransferase (ALT/SGPT) 65 U/L (12-78) Alkaline Phosphatase 76 U/L (45-117) Total Protein 8.5 gm/dl (6.4-8.2) Albumin 3.9 gm/dl (3.4-5.0) Lipase 158 U/L (73-393) Venous Blood pH 7.34 (7.36-7.41) Venous Blood Partial Pressure CO2 59 mmHg (38.0-50.0) Venous Blood Partial Pressure O2 30 mmHg Venous Blood HCO3 31 mmol/L Venous Blood Oxygen Saturation < 60.0 % Venous Blood Base Excess 3.9 mEq/L Lactic Acid Level 1.3 mmol/L (0.4-2.0) Urine Color YELLOW Urine Appearance CLEAR (CLEAR) Urine pH 5.0 (4.5-7.5) Urine Specific [place] 1.023 (1.000-1.030) Urine Protein NEG (NEG) Urine Glucose (UA) NEG (NEG) Urine Ketones NEG (NEG) Urine Occult Blood NEG (NEG) Urine Nitrite NEG (NEG) Urine Bilirubin NEG (NEG) Urine Urobilinogen NEG (NEG) Urine Leukocyte Esterase NEG (NEG) Magnesium Level 1.8 mg/dl (1.8-2.4) Micro Results: Item Value Date Time Blood Culture Received 06/10/182154 Blood Pending Blood Culture Received 06/10/182146 Blood Pending Recent Pertinent Medications * Vanc 2000mg (~19mg/kg) IV x 1 in ED Assessment & Plan VANC-IV: * Estimated p'kinetics: Vd~0.7L/kg, Ke~0.104hr-1, T1/2~6.7hrs * MAINTENANCE DOSE: VANC 1750mg (~16mg/kg) IV every 8 hours. * Goal trough level estimate: ~15 mcg/mL. * VANC trough level @ [facility] prior to 06/11 2000 dose. Pharmacy will continue to follow and will adjust dose/frequency as necessary. Thank you
--- NOTE | 2018-06-11 12:34 | Progress Note ---
Internal Med Progress Note Date of Service: Jun 11, 2018. Provider Documentation: SUBJECTIVE: Seen and examined at bedside Reports left leg pain is controlled States having drainage from laceration site Denies chest pain, SOB, dizziness Family at bedside OBJECTIVE: Vital Signs-as noted below Physical Exam: General Appearance:Moderately built and nourished, no apparent distress Head: normocephalic, Atraumatic Eyes: normal inspection, EOMI, PERRL Neck: supple, Trachea midline Respiratory/Chest: Normal breath sounds, CTA Cardiovascular: S1, S2, No murmur Abdomen/GI:Soft, Non tender, Bowel sounds present Extremities/Musculoskelatal:normal inspection, Left thigh swelling, erythema, drainage from lacerated site Neurologic/Psych:AAOX3, grossly no focal neurological deficits Skin: normal color, warm Lab data as noted below. ASSESSMENT & PLAN: Left thigh cellulitis Failed outpatient Bactrim.Keflex Venous Doppler: No DVT L LE USD:15 x 9 x 2 cm slightly complex fluid collection located between the subcutaneous fat and thigh musculature. No signs of sepsis Normal lactate levels Continue IV Vancomycin Blood Cultures pending Orthopedics consulted continue IV fluids DVT Px: Heparin SQ Code Status: Full Code Disposition: Expect to discharge home when stable Vital Signs: Date Time Temp Pulse Resp B/P (MAP) Pulse Ox O2 Delivery O2 Flow Rate FiO2 06/11/18 08:15 Room Air 06/11/18 07:26 36.9 77 18 121/70 (87) 98 Room Air 06/11/18 02:16 36.8 86 18 126/74 97 Room Air 06/11/18 00:06 37.0 80 18 109/61 98 Room Air 06/10/18 22:09 83 18 140/75 99 Room Air 06/10/18 20:37 36.7 94 18 145/83 99 Room Air Lab Results: Results Past 24 Hours Test 06/10/18 21:47 06/10/18 21:55 06/10/18 22:45 06/11/18 06:03 Range/Units White Blood Count 8.82 8.14 4.8-10.8 K/uL Red Blood Count 4.76 4.14 4.7-6.1 M/uL Hemoglobin 15.5 13.4 14.0-18.0 g/dL Hematocrit 44.1 38.6 42-52 % Mean Corpuscular Volume 92.6 93.2 80-100 fL Mean Corpuscular Hemoglobin 32.6 32.4 25-34 pg Mean Corpuscular Hemoglobin Concent 35.1 34.7 32-36 g/dl Platelet Count 237 188 130-400 K/uL Mean Platelet Volume 10.9 11.1 7.4-10.4 fL Neutrophils (%) (Auto) 72.4 70.6 % Lymphocytes (%) (Auto) 13.8 14.0 % Monocytes (%) (Auto) 10.8 12.8 % Eosinophils (%) (Auto) 2.6 2.3 % Basophils (%) (Auto) 0.1 0.1 % Neutrophils # (Auto) 6.38 5.74 1.4-6.5 K/uL Lymphocytes # (Auto) 1.22 1.14 1.2-3.4 K/uL Monocytes # (Auto) 0.95 1.04 0.11-0.59 K/uL Eosinophils # (Auto) 0.23 0.19 0-0.5 K/uL Basophils # (Auto) 0.01 0.01 0-0.2 K/uL RDW Standard Deviation 40.8 41.8 36.4-46.3 fL RDW Coefficient of Variation 12.0 12.3 11.5-14.5 % Immature Granulocyte % (Auto) 0.3 0.2 % Immature Granulocyte # (Auto) 0.03 0.02 0.00-0.02 K/uL Sodium Level 138 140 136-145 mmol/L Potassium Level 4.2 4.4 3.5-5.1 mmol/L Chloride Level 102 109 98-107 mmol/L Carbon Dioxide Level 30 26 21-32 mmol/L Anion Gap 6.0 5.0 3-11 mmol/L Blood Urea Nitrogen 13 12 7-18 mg/dl Creatinine 0.99 0.91 0.60-1.40 mg/dl Est Creatinine Clear Calc Drug Dose 133.5 144.4 ml/min Estimated GFR () 114.7 127.0 Estimated GFR (Non- 99.0 109.6 BUN/Creatinine Ratio 12.8 13.1 10-20 Random Glucose 88 95 70-99 mg/dl Calcium Level 8.8 8.0 8.5-10.1 mg/dl Total Bilirubin 0.3 0.2-1 mg/dl Direct Bilirubin 0.1 0-0.2 mg/dl Aspartate Amino Transf (AST/SGOT) 30 15-37 U/L Alanine Aminotransferase (ALT/SGPT) 65 12-78 U/L Alkaline Phosphatase 76 45-117 U/L Total Protein 8.5 6.4-8.2 gm/dl Albumin 3.9 3.4-5.0 gm/dl Lipase 158 73-393 U/L Venous Blood pH 7.34 7.36-7.41 Venous Blood Partial Pressure CO2 59 38.0-50.0 mmHg Venous Blood Partial Pressure O2 30 mmHg Venous Blood HCO3 31 mmol/L Venous Blood Oxygen Saturation < 60.0 % Venous Blood Base Excess 3.9 mEq/L Lactic Acid Level 1.3 0.4-2.0 mmol/L Urine Color YELLOW Urine Appearance CLEAR CLEAR Urine pH 5.0 4.5-7.5 Urine Specific [place] 1.023 1.000-1.030 Urine Protein NEG NEG Urine Glucose (UA) NEG NEG Urine Ketones NEG NEG Urine Occult Blood NEG NEG Urine Nitrite NEG NEG Urine Bilirubin NEG NEG Urine Urobilinogen NEG NEG Urine Leukocyte Esterase NEG NEG Magnesium Level 1.8 1.8-2.4 mg/dl Microbiology Results 06/10/18 Blood Culture, Received Pending 06/10/18 Blood Culture, Received Pending
--- NOTE | 2018-06-11 13:41 | Orthopedic Consultation ---
Orthopedic Consultation Date of Consultation: Jun 11, 2018. 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 He suffered a laceration to his thigh from a propellant charge loader/digging bucket. He was seen in the ER and his wound closed with brent. He developed some swelling and drainage last week and was seen again in the ER 2 days ago, started on keflex and bactrim. His drainage continued, he was seen again in the ER last night, admitted, and is receiving IV antibiotics. He reports some numbness in his medial thigh as well. Past Medical/Surgical History Medical Problems: (1) Crush injury of leg Status: Acute (2) Encounter for tobacco use cessation counseling Status: Acute (3) Laceration of left thigh Status: Acute (4) Work related injury Status: Acute Social History Smoking Status: Current Every Day Smoker Marital Status: in relationship Housing Status: lives with family Occupation Status: employed Allergies Coded Allergies: No Known Allergies (Unverified , 06/03/18) Home Medications Scheduled Bacitracin (Topical) (Bacitracin), 1 APPLN TOP BID Cephalexin Monohydrate (Keflex), 500 MG PO QID Sulfa/Trimethoprim (Bactrim Ds 800MG/160MG), 1 TAB PO BID Scheduled PRN Acetaminophen (Tylenol), 1,000 MG PO Q6H PRN for Pain Diphenhydramine Hcl (Benadryl Allergy), 25 MG PO UD PRN for Allergic Reaction Ibuprofen Tab (Motrin), 800 MG PO TIDM PRN for Pain Current Inpatient Medications Current Inpatient Medications Medications (Trade) Dose Ordered Sig/Jett Route Start Time Stop Time Status Last Admin Dose Admin Heparin Sodium (Porcine) (Heparin Sq 5000 Unit/0.5ml) 5,000 unit Q8H SQ 06/11/18 06:00 07/11/18 05:59 Acetaminophen (Tylenol Tab) 650 mg Q4H PRN PO 06/10/18 23:45 07/10/18 23:44 06/11/18 11:26 650 MG Al Hydrox/Mg Hydrox/Simethicone (Maalox Max Susp) 15 ml Q4H PRN PO 06/10/18 23:45 07/10/18 23:44 Polyethylene (Miralax Powder Packet) 17 gm DAILY PRN PO 06/10/18 23:45 07/10/18 23:44 Ondansetron HCl (Zofran Inj) 4 mg Q6H PRN IV 06/10/18 23:45 07/10/18 23:44 Diphenhydramine HCl (Benadryl Cap) 25 mg DAILY PRN PO 06/10/18 23:45 07/10/18 23:44 Sodium Chloride 1,000 ml @ 75 mls/hr [id number] IV 06/10/18 23:45 07/10/18 23:44 06/11/18 01:29 75 MLS/HR Vancomycin HCl 1750 mg/Sodium Chloride 535 ml @ 200 mls/hr Q8H IV 06/11/18 04:00 06/21/18 03:59 06/11/18 11:53 200 MLS/HR Vancomycin HCl (Consult) 1 ea UD PRN N/A 06/10/18 23:45 07/10/18 23:44 Morphine Sulfate (MoRPHine SULFATE INJ) 3 mg Q3HWA PRN IV 06/10/18 23:45 06/24/18 23:44 Review of Systems Constitutional: No fever, No chills Respiratory: No shortness of breath Cardiovascular: No chest pain Abdomen: No pain, No diarrhea, No problem reported Neurologic: + numbness/tingling Physical Exam Date Time Temp Pulse Resp B/P (MAP) Pulse Ox O2 Delivery O2 Flow Rate FiO2 06/11/18 08:15 Room Air 06/11/18 07:26 36.9 77 18 121/70 (87) 98 Room Air 06/11/18 02:16 36.8 86 18 126/74 97 Room Air 06/11/18 00:06 37.0 80 18 109/61 98 Room Air 06/10/18 22:09 83 18 140/75 99 Room Air 06/10/18 20:37 36.7 94 18 145/83 99 Room Air He is alert, NAD. He has a transverse laceration closed with brent across the anterior medial thigh. There is swelling, erythema, and purulent drainage from the wound. His thigh is tender around the wound. He reports some numbness in the medial thigh as well. He is able to DF/PF, flex his hip and SLR. NVI CT scan was reviewed which shows a fluid collection subcutaneous anterior medially Laboratory Results Last 24 Hours Test 06/10/18 21:47 06/10/18 21:55 06/10/18 22:45 06/11/18 06:03 White Blood Count 8.82 K/uL 8.14 K/uL Red Blood Count 4.76 M/uL 4.14 M/uL Hemoglobin 15.5 g/dL 13.4 g/dL Hematocrit 44.1 % 38.6 % Mean Corpuscular Volume 92.6 fL 93.2 fL Mean Corpuscular Hemoglobin 32.6 pg 32.4 pg Mean Corpuscular Hemoglobin Concent 35.1 g/dl 34.7 g/dl Platelet Count 237 K/uL 188 K/uL Mean Platelet Volume 10.9 fL 11.1 fL Neutrophils (%) (Auto) 72.4 % 70.6 % Lymphocytes (%) (Auto) 13.8 % 14.0 % Monocytes (%) (Auto) 10.8 % 12.8 % Eosinophils (%) (Auto) 2.6 % 2.3 % Basophils (%) (Auto) 0.1 % 0.1 % Neutrophils # (Auto) 6.38 K/uL 5.74 K/uL Lymphocytes # (Auto) 1.22 K/uL 1.14 K/uL Monocytes # (Auto) 0.95 K/uL 1.04 K/uL Eosinophils # (Auto) 0.23 K/uL 0.19 K/uL Basophils # (Auto) 0.01 K/uL 0.01 K/uL RDW Standard Deviation 40.8 fL 41.8 fL RDW Coefficient of Variation 12.0 % 12.3 % Immature Granulocyte % (Auto) 0.3 % 0.2 % Immature Granulocyte # (Auto) 0.03 K/uL 0.02 K/uL Sodium Level 138 mmol/L 140 mmol/L Potassium Level 4.2 mmol/L 4.4 mmol/L Chloride Level 102 mmol/L 109 mmol/L Carbon Dioxide Level 30 mmol/L 26 mmol/L Anion Gap 6.0 mmol/L 5.0 mmol/L Blood Urea Nitrogen 13 mg/dl 12 mg/dl Creatinine 0.99 mg/dl 0.91 mg/dl Est Creatinine Clear Calc Drug Dose 133.5 ml/min 144.4 ml/min Estimated GFR () 114.7 127.0 Estimated GFR (Non- 99.0 109.6 BUN/Creatinine Ratio 12.8 13.1 Random Glucose 88 mg/dl 95 mg/dl Calcium Level 8.8 mg/dl 8.0 mg/dl Total Bilirubin 0.3 mg/dl Direct Bilirubin 0.1 mg/dl Aspartate Amino Transf (AST/SGOT) 30 U/L Alanine Aminotransferase (ALT/SGPT) 65 U/L Alkaline Phosphatase 76 U/L Total Protein 8.5 gm/dl Albumin 3.9 gm/dl Lipase 158 U/L Venous Blood pH 7.34 Venous Blood Partial Pressure CO2 59 mmHg Venous Blood Partial Pressure O2 30 mmHg Venous Blood HCO3 31 mmol/L Venous Blood Oxygen Saturation < 60.0 % Venous Blood Base Excess 3.9 mEq/L Lactic Acid Level 1.3 mmol/L Urine Color YELLOW Urine Appearance CLEAR Urine pH 5.0 Urine Specific [place] 1.023 Urine Protein NEG Urine Glucose (UA) NEG Urine Ketones NEG Urine Occult Blood NEG Urine Nitrite NEG Urine Bilirubin NEG Urine Urobilinogen NEG Urine Leukocyte Esterase NEG Magnesium Level 1.8 mg/dl Assessment & Plan Assessment: Left thigh abscess Plan: He was seen and examined by Dr. Witt today. He has obvious purulent drainage from the wound. We did recommend taking him to the operating room for I and D of the thigh abscess. Procedure was explained including risks, benefits , alternatives to surgery. Consent was obtained. It is possible that we may be able to close the wound with a drain in place vs leaving it open and applying a wound vac, so he is aware of that. He did eat lunch today so we'll plan to do this tomorrow 06/12/18. NPO after midnight, including chewing tobacco. In the meantime he can WBAT. Mario's and scd's ordered for dvt prophylaxis. We'll stop the heparin.
--- NOTE | 2018-06-11 16:45 | Progress Note ---
Progress Note Date of Service Jun 11, 2018. Progress Note The patient is scheduled for an I and D of the left thigh tomorrow. A preoperative evaluation was completed. He was consented for both MAC sedation and general anesthesia. He was counseled to remain NPO after midnight except for sips of water with pills. He was also counseled not to chew tobacco after midnight.
[2018-06-11] MEDS: KETOROLAC TROMETHAMINE 15 MG/ML VIAL IV PRN (17:54)
--- NOTE | 2018-06-11 19:28 | HISTORY & PHYSICAL EXAMINATION ---
DATE OF ADMISSION: 06/11/2018 CHIEF COMPLAINT: Left thigh injury and wound infection. HISTORY OF PRESENT ILLNESS: This is a 32-year-old male with no significant past medical history, presents with left thigh wound and infection. The patient was seen in the ER on 06/03/2018 when he had injury with the tractor. 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 He was hit by the bucket of a tractor and pinched between the bucket and the tailgate of another vehicle. He first came to the ER and his laceration was sutured and advised to follow with outpatient orthopedics . Hev saw ortho and he was told to come next week to remove the brent, but again he was having lot of pain and increased erythema and he came to the ER again on 06/08/2018 and CAT scan was done and it showed no abscess and he was prescribed Keflex and Bactrim and sent home, but the swelling is increasing and pain is increasing. He is not ambulating much so he came back today with ultrasound showing 15 x 9cmcm fluid collection.The patient is afebrile and hemodynamically stable. Denies any other problems. No dizziness,no blurred vision, no earache, no runny nose, no sore throat, no difficulty swallowing, no cough, no fever, no chills. No chest pain, no shortness of breath. No nausea, no vomiting, no abdominal pain. Normal bowel and bowel movements. Appetite is okay. ALLERGIES: No known drug allergies. PAST MEDICAL HISTORY: As mentioned above. PAST SURGICAL HISTORY: Inguinal hernia repair,appendectomy MEDICATIONS: Bactrim,Keflex Benadryl p.r.n. FAMILY HISTORY: Nothing significant. SOCIAL HISTORY: Chews Tobacco, No alcohol. REVIEW OF SYMPTOMS: As per HPI. Rest of the review of symptoms negative. PHYSICAL EXAMINATION: GENERAL: Patient is of moderate build, not in distress. VITAL SIGNS: Temperature 36.7, pulse 94, respiratory rate 18, blood pressure 145/83, oxygen 99% on room air. HEENT: No pallor, no icterus. Pupils equal, round, and reactive to light. NECK: No JVD, no neck masses, no carotid bruits. CARDIOVASCULAR: S1, S2 heard, regular rate and rhythm, no murmur, no gallop. RESPIRATORY SYSTEM: Clear to auscultation bilaterally. No wheezing, no crackles. ABDOMEN: Soft, bowel sounds present. Nontender. No distention. CENTRAL NERVOUS SYSTEM: Cranial nerves II-XII grossly intact. Nonfocal. EXTREMITIES: Right thigh is erythematous and swollen and some mild discharge seen in the suture site. LABS: WBC 8.8, hemoglobin 15.5, hematocrit 44.1, platelets 237. Sodium 138, potassium 4.2, chloride 102, bicarb 30, BUN 13, creatinine 0.9, serum glucose 88. Lactic acid 1.3, calcium 8.8, total bilirubin 0.3, direct bilirubin 0.1, AST 30, alkaline phosphatase 76, lipase 158. Urinalysis negative. Extremity, left thigh ultrasound shows 15 x 9cm complex fluid collection located between subcutaneous fat and thigh musculature. ASSESSMENT AND PLAN: This is a 32-year-old male who presents for followup on left thigh wound and infection. 15 x 9cm fluid collection on the ultrasound but no white count and no leukocytosis. He was not responding to oral antibiotics. We will place him on IV vancomycin and consult orthopedics in a.m. for possible I and D. Pain control, PT, OT when more stable. We will also check lower extremity Doppler to rule out any DVT. DVT prophylaxis with heparin subQ for now. DISPOSITION: Admit to medical floor. Expect to discharge home and follow with his family doctor. Level 1 full code. MTDD
[2018-06-11] MEDS ORDERED: VANCOMYCIN TROUGH ONE (19:30)
--- NOTE | 2018-06-11 21:34 | Pharmacy Progress Note ---
Pharmacy Abx Dose Short Note Date of Service Jun 11, 2018. Assessment & Plan Item Value Date Time Vancomycin Level Trough 12.2 mcg/ml 06/11/182001 Assessment 32 year old male receiving Vancomycin 1750mg Q8H for treatment of cellulitis/ laceration Day # 2 of antimicrobial therapy. Blood cultures are still pending. Plan Vancomycin * Trough level of 12.2 mcg/mL is slightly subtherapeutic. * Change to 2000 mg IV (~19mg/kg) every 8 hours. * Estimated pharmacokinetics: ke=0.104, t1/2=6.7hours * Goal trough level for cellulitis : ~15 mcg/mL * Trough level ordered for: 06/13/18 at 0330 Pharmacy will continue to follow and will adjust dose/frequency as necessary. Thank you.
[2018-06-11 23:09] VITALS: BP 118/66; PULSE 76; TEMP 37; O2SAT 99
[2018-06-12] VITALS (7 sets, daily range): BP systolic 116–159; BP diastolic 65–79; PULSE 68–117; TEMP 36.4–37; O2SAT 91–97
[2018-06-12] MEDS: SODIUM CHLORIDE 0.9% 1000ML 1,000 ML IV SCH ×2 (02:31→17:52)
[2018-06-12] MEDS: VANCOMYCIN IV 2,000 MG in SODIUM CHLORIDE 0.9% 500ML 500 ML IV SCH ×3 (04:28→20:00)
[2018-06-12 06:46] LABS: CALCIUM 8.1 mg/dl (8.5-10.1); CREATININE 0.81 mg/dl (0.60-1.40); POTASSIUM 4.1 mmol/L (3.5-5.1)
[2018-06-12] MEDS: KETOROLAC TROMETHAMINE 15 MG/ML VIAL IV PRN ×2 (07:07→17:48)
--- NOTE | 2018-06-12 10:36 | Progress Note ---
Internal Med Progress Note Date of Service: Jun 12, 2018. Provider Documentation: SUBJECTIVE: Seen and examined at bedside Left leg Pain is controlled Reports increased pain with ambulation Planned for I&D today Denies chest pain, SOB, dizziness No other complaints OBJECTIVE: Vital Signs-as noted below Physical Exam: General Appearance:Moderately built and nourished, no apparent distress Head: normocephalic, Atraumatic Eyes: normal inspection, EOMI, PERRL Neck: supple, Trachea midline Respiratory/Chest: Normal breath sounds, CTA Cardiovascular: S1, S2, No murmur Abdomen/GI:Soft, Non tender, Bowel sounds present Extremities/Musculoskelatal:normal inspection, Left thigh swelling, erythema, drainage from lacerated site Neurologic/Psych:AAOX3, grossly no focal neurological deficits Skin: normal color, warm Lab data as noted below. ASSESSMENT & PLAN: Left thigh cellulitis/abscess Failed outpatient Bactrim,Keflex Venous Doppler: No DVT L LE USD:15 x 9 x 2 cm slightly complex fluid collection located between the subcutaneous fat and thigh musculature. No signs of sepsis Normal lactate levels Continue IV Vancomycin Blood Cultures: No growth to date Planned for I & D today Appreciate Orthopedics Input continue IV fluids DVT Px: SCDs Code Status: Full Code Disposition: Expect to discharge home when stable Vital Signs: Date Time Temp Pulse Resp B/P (MAP) Pulse Ox O2 Delivery O2 Flow Rate FiO2 06/12/18 08:15 Room Air 06/12/18 06:49 37.0 72 18 121/67 (85) 95 Room Air 06/12/18 00:15 Room Air 06/11/18 23:09 37.0 76 18 118/66 (83) 99 Room Air 06/11/18 19:59 Room Air 06/11/18 16:00 Room Air Lab Results: Results Past 24 Hours Test 06/11/18 13:51 06/11/18 20:02 06/12/18 05:42 Range/Units Erythrocyte Sedimentation Rate 25 0-14 mm/hr C-Reactive Protein 3.02 0-0.29 mg/dl Vancomycin Level Trough 12.2 SEE COMMENT mcg/ml Sodium Level 139 136-145 mmol/L Potassium Level 4.1 3.5-5.1 mmol/L Chloride Level 108 98-107 mmol/L Carbon Dioxide Level 26 21-32 mmol/L Anion Gap 5.0 3-11 mmol/L Blood Urea Nitrogen 9 7-18 mg/dl Creatinine 0.81 0.60-1.40 mg/dl Est Creatinine Clear Calc Drug Dose 162.2 ml/min Estimated GFR () 134.4 Estimated GFR (Non- 116.0 BUN/Creatinine Ratio 10.7 10-20 Random Glucose 86 70-99 mg/dl Calcium Level 8.1 8.5-10.1 mg/dl Magnesium Level 1.9 1.8-2.4 mg/dl
--- NOTE | 2018-06-12 14:06 | History & Physical Bridge Note ---
H&P Re-Evaluation Bridge Note: I have examined the patient, reviewed the History & Physical and in the interval since the performance of the History & Physical I have noted the following changes of clinical significance: No changes noted
--- NOTE | 2018-06-12 14:30 | PROGRESS NOTE ---
DATE: 06/12/2018 SUBJECTIVE: A 32-year-old gentleman admitted with a left thigh abscess after a traumatic injury. There has been essentially no interval change overnight. He continues to have thigh discomfort. It is not any worse. He continues to have drainage. No chest pain or shortness of breath. OBJECTIVE: VITAL SIGNS: Temperature 37.0. Vital signs stable. EXTREMITIES: Examination of the left leg reveals some moderate swelling over the anterior aspect of the leg around the wound site. He has got obvious purulent drainage. He is neurologically intact. LABORATORY DATA: His sed rate is 25. His C-reactive protein is 3.02. Blood cultures are no growth. ASSESSMENT: A 32-year-old male 2 weeks out from a left thigh injury from a traumatic laceration with obvious infection. He has got pus coming out of his wound and incision site. PLAN: We are going to take him to the operating room today. We are going to wash this out. We will likely pack it and then put a wound VAC on it. It is extremely dirty. We will get cultures intraoperatively. The risks and benefits have been explained and he understands and desires to proceed. Informed consent was obtained yesterday. Will continue n.p.o. We will begin DVT prophylaxis postoperatively including TEDs and SCDs and likely some aspirin. We are going to hold his heparin.
[2018-06-12] MEDS ORDERED: FENTANYL CITRATE INJ 50 MCG/1 ML 2 ML VIAL ONE ×2 (14:40→15:11)
[2018-06-12] MEDS ORDERED: MIDAZOLAM HCL 1 MG/ML 2ML VIAL ONE (14:40)
[2018-06-12] MEDS ORDERED: BACITRACIN 50000 UNIT VIAL ONE (14:45)
[2018-06-12] MEDS ORDERED: PROPOFOL IV EMULSION 10 MG/ML 20 ML VIAL ONE (15:11)
[2018-06-12] MEDS ORDERED: ONDANSETRON INJ 2 MG/ML 2 ML VIAL ONE (15:11)
[2018-06-12] MEDS ORDERED: LIDOCAINE HCL 2% 2 ML VIAL (20MG/ML) ONE (15:11)
[2018-06-12] MEDS ORDERED: DEXAMETHASONE SOD INJ 4 MG/ML VIAL ONE (15:11)
[2018-06-12] MEDS ORDERED: ONDANSETRON INJ 2 MG/ML 2 ML VIAL IV PRN ×2 (15:15→15:45)
[2018-06-12] MEDS ORDERED: EpHEDrine SULFATE INJ 50 MG/ML AMP IV PRN (15:15)
[2018-06-12] MEDS ORDERED: HYDROmorphone INJ 1 MG/ML SYR IV PRN (15:15)
[2018-06-12] MEDS ORDERED: ATROPINE SULFATE 0.1 MG/ML 5ML SYR IV PRN (15:15)
[2018-06-12] MEDS ORDERED: PHENYLEPHRINE 100MCG/ML 5ML SYR IV PRN (15:15)
--- NOTE | 2018-06-12 15:37 | [facility] Post Operative Brief Note ---
Immediate Operative Summary Operative Date Jun 12, 2018. Pre-Operative Diagnosis Left Thigh Abscess Post-Operative Diagnosis Same Procedure(s) Performed I & D Left Thigh Abscess Surgeon MD JERI Career Advisor Surgeon(s) ZAIDA Bates Estimated Blood Loss 20 cc Findings Consistent with Post-Op Diagnosis Fluids (cc crystalloids) 700 cc Specimens Tissue Culture + Fluid Culture X 2 Drains None Anesthesia Type General Complication(s) none Disposition Accompanied Pt To Recover: no Disposition: Recovery Room / PACU Overlapping Procedure I was present for: the critical portions of procedure. I was immediately available: during the entire case
[2018-06-12] MEDS ORDERED: METOCLOPRAMIDE HCL INJ 5 MG/ML 2 ML VIAL IV PRN (15:45)
[2018-06-12] MEDS ORDERED: DiphenhydrAMINE HCL 50 MG/ML VIAL IV PRN (15:45)
[2018-06-12] MEDS ORDERED: ALUMINUM/MAGNESIUM/SIMETH (MAALOX MAX) 30 ML UDC PO PRN (15:45)
[2018-06-12] MEDS ORDERED: HYDROmorphone INJ 2 MG/ML SYR/VIAL ONE (15:46)
--- NOTE | 2018-06-12 16:30 | Anesthesiology Progress Note ---
Anesthesia Post Op Note Date & Time Jun 12, 2018 at 16:30 Vital Signs Pain Intensity: 5 Vital Signs Past 12 Hours Date Time Temp Pulse Resp B/P (MAP) Pulse Ox O2 Delivery O2 Flow Rate FiO2 06/12/18 16:20 36.9 84 14 142/80 94 Nasal Cannula 2 06/12/18 16:10 36.9 75 14 143/82 94 Nasal Cannula 2 06/12/18 16:00 88 14 149/82 97 Oxymask 10 06/12/18 15:50 86 14 157/92 97 Oxymask 10 06/12/18 15:41 37.0 88 14 149/75 97 Oxymask 10 06/12/18 08:15 Room Air 06/12/18 06:49 37.0 72 18 121/67 (85) 95 Room Air Notes Mental Status: alert / awake / arousable, participated in evaluation Pt Amnestic to Procedure: Yes Nausea / Vomiting: adequately controlled Pain: adequately controlled Airway Patency, RR, SpO2: stable & adequate BP & HR: stable & adequate Hydration State: stable & adequate Anesthetic Complications: no major complications apparent
--- NOTE | 2018-06-12 18:03 | OPERATIVE REPORT ---
DATE OF OPERATION: 06/12/2018 SURGEON: Emerson Witt MD CONSTRUCTION TRADES CONTRACTOR: LEONOR Raya PREOPERATIVE DIAGNOSIS: Left thigh abscess. POSTOPERATIVE DIAGNOSIS: Same. PROCEDURE PERFORMED: Irrigation and debridement of left thigh abscess. COMPLICATIONS: None. ESTIMATED BLOOD LOSS: 20 mL. FLUID REPLACEMENT: 700 mL crystalloid fluid replacement. ANESTHESIA: General. SPECIMENS: We got 2 sets of swab cultures. One is superficial tissues and one is the deep tissues and then some sac sent off for a tissue culture. Findings of left thigh abscess with some fat necrosis. 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 He was hit by some type of mechanical device that caused a large laceration on his left thigh. He was seen in Emergency Department and had incision, debridement, and then closure. This was closed with skin brent. He has continued to have persistent pain, discomfort, and swelling that got worse over time. He was seen in the Emergency Room on several occasions. He started developing purulent fluid out of his left thigh. He was admitted by the medicine service. He was indicated for a formal irrigation and debridement. OPERATIVE FINDINGS: Operative findings revealed a left thigh abscess. He had necrosis of fat and subcutaneous tissues and some undermining of the tissues. I did not feel there was any involvement of muscular compartment. OPERATIVE PROCEDURE: Patient was taken to the operating room, identified and placed on the operating room table in supine position. All contact areas were appropriately padded. Patient was receiving his scheduled dose of vancomycin and received it just prior to surgery. A general anesthetic was implemented by anesthesia team. The brent were removed from the left thigh. The left thigh was then prepped with Hibiclens and then draped in the usual sterile fashion. The wound was opened up sharply with a knife. There was obvious purulent debris. We did obtain 1 fluid culture of the subcutaneous tissues. This did track the whole way down to the musculature, and there was a full thickness area of fat that was kind of necrosed within the wound. I removed this and sent some of the tissue off for tissue culture. I also did a fluid culture of the deep fluid. I then just palpably manipulated the subcutaneous tissues to undermine and expose all pockets of purulence. Once I did this, I irrigated the wound extensively with 6 L of pulsatile lavage. I did saucerize out the skin edges, which were clearly contaminated and somewhat necrotic. We were down to good healthy tissue. I did use a rongeur to debride all the necrotic fat. Once this was complete, I then packed this with Betadine soaked Kerlix wrap. I then placed 4 ABDs sponges over this followed by sterile cast padding and Alexis bandage. The patient was then brought out of general anesthesia and transferred to the recovery room in stable condition. The patient tolerated the procedure well with no complications. All needle and sponge counts were correct at the end of the operation. I attest to the content of the Intraoperative Record and any orders documented therein. Any exception s are noted below.
[2018-06-12] MEDS: MoRPHine SULFATE 4 MG/ML 1 ML CARP\\VIAL IV PRN (20:15)
[2018-06-12] MEDS: ASPIRIN 81 MG ECTAB PO SCH (21:07)
[2018-06-13] MEDS ORDERED: VANCOMYCIN TROUGH ONE (03:30)
[2018-06-13 03:36] LABS: HEMATOCRIT 35.1 % (42-52); HEMOGLOBIN 12.4 g/dL (14.0-18.0); IG# 0.01 K/uL (0.00-0.02); LYMPH % 6.5 %; LYMPH ABS # 0.56 K/uL (1.2-3.4); MEAN CELL VOLUME 91.2 fL (80-100); MEAN CORPUSCULAR HEMOGLOBIN 32.2 pg (25-34); MEAN CORPUSCULAR HGB CONC 35.3 g/dl (32-36); MEAN PLATELET VOLUME 10.6 fL (7.4-10.4); MONO % 4.7 %; MONO ABS # 0.41 K/uL (0.11-0.59); NEUT % 88.7 %; NEUT ABS # 7.66 K/uL (1.4-6.5); PLATELET COUNT 213 K/uL (130-400); RED CELL DISTRIBUTION WIDTH CV 11.7 % (11.5-14.5); RED CELL DISTRIBUTION WIDTH SD 39.3 fL (36.4-46.3); WHITE BLOOD COUNT 8.64 K/uL (4.8-10.8)
[2018-06-13] MEDS: VANCOMYCIN IV 2,000 MG in SODIUM CHLORIDE 0.9% 500ML 500 ML IV SCH ×3 (03:42→20:20)
[2018-06-13 03:43] LABS: CALCIUM 8.2 mg/dl (8.5-10.1); CREATININE 0.84 mg/dl (0.60-1.40); POTASSIUM 4.3 mmol/L (3.5-5.1)
[2018-06-13] MEDS: MoRPHine SULFATE 4 MG/ML 1 ML CARP\\VIAL IV PRN ×2 (04:57→12:02)
[2018-06-13 06:58] VITALS: BP 134/69; PULSE 59; TEMP 36.7; O2SAT 96
[2018-06-13] MEDS: ASPIRIN 81 MG ECTAB PO SCH ×2 (08:43→21:06)
[2018-06-13] MEDS: PANTOprazole SOD 40 MG TAB PO SCH (08:43)
[2018-06-13] MEDS: MULTIVITAMIN TAB PO SCH (08:43)
--- NOTE | 2018-06-13 08:44 | Pharmacy Progress Note ---
Pharmacy Abx Dose Progress Nt Date of Service Jun 13, 2018. Pharmacy Dosing Scope The patient is currently receiving the following antimicrobial agents per Pharmacy consult: Vancomycin 2,000 mg IV/PO every 8 hours Objective Height (Feet): 6 Height (Inches): 0.00 Weight (Kilograms): 106.700 Vital Signs (Past 12Hrs) Vital Signs Past 12 Hours Date Time Temp Pulse Resp B/P (MAP) Pulse Ox O2 Delivery O2 Flow Rate FiO2 06/13/18 07:55 Room Air 06/13/18 06:58 36.7 59 16 134/69 (90) 96 Room Air 06/12/18 23:06 36.6 68 16 133/72 (92) 95 Room Air 06/12/18 23:00 Room Air 06/12/18 21:18 36.6 71 18 142/75 (97) 97 Lab Results (24Hrs) Laboratory Tests (24 Hours) Test 06/13/18 03:19 White Blood Count 8.64 K/uL (4.8-10.8) Red Blood Count 3.85 M/uL (4.7-6.1) L Hemoglobin 12.4 g/dL (14.0-18.0) L Hematocrit 35.1 % (42-52) L Mean Corpuscular Volume 91.2 fL (80-100) Mean Corpuscular Hemoglobin 32.2 pg (25-34) Mean Corpuscular Hemoglobin Concent 35.3 g/dl (32-36) Platelet Count 213 K/uL (130-400) Mean Platelet Volume 10.6 fL (7.4-10.4) H Neutrophils (%) (Auto) 88.7 % Lymphocytes (%) (Auto) 6.5 % Monocytes (%) (Auto) 4.7 % Eosinophils (%) (Auto) 0.0 % Basophils (%) (Auto) 0.0 % Neutrophils # (Auto) 7.66 K/uL (1.4-6.5) H Lymphocytes # (Auto) 0.56 K/uL (1.2-3.4) L Monocytes # (Auto) 0.41 K/uL (0.11-0.59) Eosinophils # (Auto) 0.00 K/uL (0-0.5) Basophils # (Auto) 0.00 K/uL (0-0.2) Micro Results Date/Time Source Procedure Growth Status 06/10/18 21:55 Blood Blood Culture - Preliminary NO GROWTH TO DATE. Resulted 06/10/18 21:47 Blood Blood Culture - Preliminary NO GROWTH TO DATE. Resulted 06/12/18 15:15 Abscess Thigh Gram Stain - Final Resulted 06/12/18 15:15 Abscess Thigh Bacterial Culture Pending Resulted 06/12/18 00:00 Abscess Thigh Gram Stain - Final Resulted 06/12/18 00:00 Abscess Thigh Bacterial Culture Pending Resulted 06/12/18 00:00 Abscess Thigh , Left Gram Stain Pending Received 06/12/18 00:00 Abscess Thigh , Left Bacterial Culture Pending Received Assessment & Plan Assessment * 32 year old male receiving vancomycin for treatment of cellulitis * Day # 4 of antimicrobial therapy * Blood cultures obtained on 06/10: NGTD * Culture of left thigh abscess obtained on 06/12: few gram positive cocci Plan Vancomycin IV * Trough level of 17.4 mcg/mL is therapeutic * Estimated PK parameters: Vd 0.7 L/kg, ke 0.104 hr-1, t1/2 6.7 hr * Continue dose of 2,000 mg IV every 8 hours * Goal trough level for cellulitis: 10-20 mcg/mL * Trough or random level ordered for: 06/14/18 at 0330 Pharmacy will continue to follow and will adjust dose/frequency as necessary. Thank you.
--- NOTE | 2018-06-13 09:09 | PROGRESS NOTE ---
DATE: 06/13/2018 SUBJECTIVE: A 32-year-old gentleman postop day 1 from an I and D of a left thigh abscess. He is doing pretty well. Does have some soreness. No chest pain or shortness of breath. OBJECTIVE: VITAL SIGNS: Temperature is 36.7. Vital signs stable. GENERAL: Physical examination reveals a pleasant, middle-aged male. He is sitting up in his bedside chair and looks pretty comfortable. EXTREMITIES: Examination of the left leg reveals the dressing to be clean, dry, and intact. He can dorsiflex and plantarflex his foot as well as flex and extend his knee appropriately. He is neurologically intact. LABORATORY DATA: Culture results of Gram stain and culture from yesterday are pending. ASSESSMENT: A 32-year-old gentleman postop day 1 from an incision and drainage of a left thigh abscess. He is doing pretty well. Pain is reasonably well controlled. PLAN: At this point, we are going to have him seen by the wound care team. I preferred them put a wound VAC on. I think he can probably be discharged as an outpatient on oral antibiotics at this point if they can place a wound VAC today. I recommended a combination of Keflex and Bactrim for at least 2 weeks. I think this is mostly a wound management issue and can follow up with wound clinic. We will be happy to see him as needed. Any orthopedic questions can be directed at [phone]. Once again once the wound VAC in place, I think he can probably be converted to p.o. antibiotics and covered for broad spectrum staph including MRSA.
[2018-06-13] MEDS ORDERED: NURSING VERBAL MED ORDER ONE (09:45)
[2018-06-13 09:46] VITALS: Ht 182.9 cm; Wt 106.7 kg
--- NOTE | 2018-06-13 10:09 | Anesthesiology Progress Note ---
Anesthesia Post Op Note Date & Time Jun 13, 2018 at 10:09 Vital Signs Pain Intensity: 0.0 Vital Signs Past 12 Hours Date Time Temp Pulse Resp B/P (MAP) Pulse Ox O2 Delivery O2 Flow Rate FiO2 06/13/18 07:55 Room Air 06/13/18 06:58 36.7 59 16 134/69 (90) 96 Room Air 06/12/18 23:06 36.6 68 16 133/72 (92) 95 Room Air 06/12/18 23:00 Room Air Notes Mental Status: alert / awake / arousable, participated in evaluation Pt Amnestic to Procedure: Yes Nausea / Vomiting: adequately controlled Pain: adequately controlled Airway Patency, RR, SpO2: stable & adequate BP & HR: stable & adequate Hydration State: stable & adequate Anesthetic Complications: no major complications apparent
[2018-06-13] MEDS: KETOROLAC TROMETHAMINE 15 MG/ML VIAL IV PRN (10:34)
[2018-06-13] MEDS ORDERED: KETOROLAC TROMETHAMINE 10 MG TAB PO PRN (10:45)
[2018-06-13] MEDS: ACETAMINOPHEN 325 MG TAB PO PRN ×2 (14:08→23:13)
--- NOTE | 2018-06-13 15:04 | Progress Note ---
Internal Med Progress Note Date of Service: Jun 13, 2018. Provider Documentation: SUBJECTIVE: Seen and examined at bedside Doing better today Left leg Pain is controlled Denies chest pain, SOB, dizziness No other complaints OBJECTIVE: Vital Signs-as noted below Physical Exam: General Appearance:Moderately built and nourished, no apparent distress Head: normocephalic, Atraumatic Eyes: normal inspection, EOMI, PERRL Neck: supple, Trachea midline Respiratory/Chest: Normal breath sounds, CTA Cardiovascular: S1, S2, No murmur Abdomen/GI:Soft, Non tender, Bowel sounds present Extremities/Musculoskelatal:normal inspection, Left thigh +wound Vac Neurologic/Psych:AAOX3, grossly no focal neurological deficits Skin: normal color, warm Lab data as noted below. ASSESSMENT & PLAN: Left thigh cellulitis/abscess S/P Irrigation and debridement of left thigh abscess POD # 1 Venous Doppler: No DVT L LE USD:15 x 9 x 2 cm slightly complex fluid collection located between the subcutaneous fat and thigh musculature. No signs of sepsis Normal lactate levels Wound Culture:Staph Species Continue IV Vancomycin Blood Cultures: No growth to date Appreciate Orthopedics Input DC IV fluids Needs Home Health and Wound clinic Follow up upon discharge Plan to DC on 2 weeks of PO Abx continue Wound Vac DVT Px: SCDs Code Status: Full Code Disposition: Expect to discharge home when stable Plan to discharge when Wound Vac/Home Health can be arranged Case management consulted Vital Signs: Date Time Temp Pulse Resp B/P (MAP) Pulse Ox O2 Delivery O2 Flow Rate FiO2 06/13/18 07:55 Room Air 06/13/18 06:58 36.7 59 16 134/69 (90) 96 Room Air 06/12/18 23:06 36.6 68 16 133/72 (92) 95 Room Air 06/12/18 23:00 Room Air 06/12/18 21:18 36.6 71 18 142/75 (97) 97 06/12/18 18:51 36.4 90 18 116/65 (82) 94 Room Air 06/12/18 17:50 36.7 117 18 159/79 (105) 92 06/12/18 17:20 36.7 76 18 140/70 (93) 94 Nasal Cannula 2.0 06/12/18 17:00 Room Air 06/12/18 16:50 91 Room Air 06/12/18 16:50 36.8 80 18 145/78 (100) 91 Room Air 06/12/18 16:20 36.9 84 14 142/80 94 Nasal Cannula 2 06/12/18 16:10 36.9 75 14 143/82 94 Nasal Cannula 2 06/12/18 16:00 88 14 149/82 97 Oxymask 10 06/12/18 15:50 86 14 157/92 97 Oxymask 10 06/12/18 15:41 37.0 88 14 149/75 97 Oxymask 10 Lab Results: Results Past 24 Hours Test 06/13/18 03:19 Range/Units White Blood Count 8.64 4.8-10.8 K/uL Red Blood Count 3.85 4.7-6.1 M/uL Hemoglobin 12.4 14.0-18.0 g/dL Hematocrit 35.1 42-52 % Mean Corpuscular Volume 91.2 80-100 fL Mean Corpuscular Hemoglobin 32.2 25-34 pg Mean Corpuscular Hemoglobin Concent 35.3 32-36 g/dl Platelet Count 213 130-400 K/uL Mean Platelet Volume 10.6 7.4-10.4 fL Neutrophils (%) (Auto) 88.7 % Lymphocytes (%) (Auto) 6.5 % Monocytes (%) (Auto) 4.7 % Eosinophils (%) (Auto) 0.0 % Basophils (%) (Auto) 0.0 % Neutrophils # (Auto) 7.66 1.4-6.5 K/uL Lymphocytes # (Auto) 0.56 1.2-3.4 K/uL Monocytes # (Auto) 0.41 0.11-0.59 K/uL Eosinophils # (Auto) 0.00 0-0.5 K/uL Basophils # (Auto) 0.00 0-0.2 K/uL RDW Standard Deviation 39.3 36.4-46.3 fL RDW Coefficient of Variation 11.7 11.5-14.5 % Immature Granulocyte % (Auto) 0.1 % Immature Granulocyte # (Auto) 0.01 0.00-0.02 K/uL Sodium Level 138 136-145 mmol/L Potassium Level 4.3 3.5-5.1 mmol/L Chloride Level 106 98-107 mmol/L Carbon Dioxide Level 26 21-32 mmol/L Anion Gap 6.0 3-11 mmol/L Blood Urea Nitrogen 11 7-18 mg/dl Creatinine 0.84 0.60-1.40 mg/dl Est Creatinine Clear Calc Drug Dose 156.4 ml/min Estimated GFR () 132.4 Estimated GFR (Non- 114.2 BUN/Creatinine Ratio 13.4 10-20 Random Glucose 181 70-99 mg/dl Calcium Level 8.2 8.5-10.1 mg/dl Magnesium Level 1.9 1.8-2.4 mg/dl Vancomycin Level Trough 17.4 SEE COMMENT mcg/ml Microbiology Results 06/12/18 Gram Stain - Final, Resulted 06/12/18 Bacterial Culture - Preliminary, Resulted Staph Species
[2018-06-13 15:36] VITALS: BP 129/61; PULSE 67; TEMP 36.6; O2SAT 96
[2018-06-13 15:45] VITALS: O2SAT 96
[2018-06-13 22:57] VITALS: BP 145/74; PULSE 53; TEMP 36.7; O2SAT 98
[2018-06-14] MEDS ORDERED: VANCOMYCIN TROUGH ONE (03:30)
[2018-06-14] MEDS: VANCOMYCIN IV 2,000 MG in SODIUM CHLORIDE 0.9% 500ML 500 ML IV SCH (03:40)
[2018-06-14 07:20] VITALS: BP 131/68; PULSE 68; TEMP 36.7; O2SAT 97
[2018-06-14 07:48] VITALS: BP 138/72; PULSE 66; TEMP 36.6; O2SAT 95
[2018-06-14] MEDS: PANTOprazole SOD 40 MG TAB PO SCH (08:27)
[2018-06-14] MEDS: MULTIVITAMIN TAB PO SCH (08:28)
[2018-06-14] MEDS: ASPIRIN 81 MG ECTAB PO SCH (08:28)
[2018-06-14 08:40] VITALS: O2SAT 95
--- NOTE | 2018-06-14 09:05 | PROGRESS NOTE ---
DATE: 06/14/2018 SUBJECTIVE: A 32-year-old gentleman postop day 2 from I and D of a left thigh abscess and now placement of a wound VAC yesterday. He is doing well. Minimal pain at this time. No new complaints. OBJECTIVE: VITAL SIGNS: Temperature 36.6. Vital signs stable. GENERAL: Physical examination reveals a pleasant, middle-aged male. He is sitting up in bed, looks completely comfortable. EXTREMITIES: Examination of the left leg reveals minimal swelling. Wound VAC is in place. The cellulitis seems to be resolved. He is neurologically intact. LABORATORY DATA: Culture results are showing MRSA. ASSESSMENT: A 32-year-old gentleman postop day #2 from I and D of a left thigh abscess with apparent MRSA infection. Doing well. Markedly better pain rey. Wound VAC is in place. Everything looks perfect. PLAN: At this point, would recommend routine wound care as per the wound VAC protocol. He will need antibiotics for at least 2 weeks. I think this is fine to have p.o. antibiotics. Oral antibiotic regimen is up to the medicine service. I think the gilbert is a wound VAC management. I need to see him back 2 weeks post surgery. Any orthopedic questions can be directed at [phone]. He can be active within the limits of the wound VAC management. I do not think he initially needs DVT prophylaxis at this time.
--- NOTE | 2018-06-14 09:42 | Pharmacy Progress Note ---
Pharmacy Abx Dose Short Note Date of Service Jun 14, 2018. Assessment & Plan Item Value Date Time Vancomycin Level Trough 21.4 mcg/ml 06/14/18 0339 Creatinine 1.00 mg/dl 06/14/18 0339 Creatinine 0.84 mg/dl 06/13/18 0319 Creatinine 0.81 mg/dl 06/12/18 0542 Assessment 32 year old male receiving IV Vancomycin 2000mg IV Q8H for treatment of MRSA Cellulitis Day # 5 of antimicrobial therapy. Seen by surgery today, OK to change to PO antibiotics for discharge. Slight increase in SCr today, resulting in slight increase in trough level. Plan Vancomycin * Trough level of 21.4 mcg/mL is slightly supratherapeutic. * Change to 1750 mg IV every 8 hours, give 10 hours after last dose. * Goal trough level for MRSA cellulitis : 15 to 20 mcg/mL * Trough level ordered for: 06/15/18 prior to 1400 dose Pharmacy will continue to follow and will adjust dose/frequency as necessary. Thank you.
[2018-06-14] MEDS: ACETAMINOPHEN 325 MG TAB PO PRN (11:02)
--- NOTE | 2018-06-14 13:05 | Progress Note ---
Internal Med Progress Note Date of Service: Jun 14, 2018. Provider Documentation: SUBJECTIVE: Seen and examined at bedside Leg pain is controlled Denies chest pain, SOB, dizziness No other complaints OBJECTIVE: Vital Signs-as noted below Physical Exam: General Appearance:Moderately built and nourished, no apparent distress Head: normocephalic, Atraumatic Eyes: normal inspection, EOMI, PERRL Neck: supple, Trachea midline Respiratory/Chest: Normal breath sounds, CTA Cardiovascular: S1, S2, No murmur Abdomen/GI:Soft, Non tender, Bowel sounds present Extremities/Musculoskelatal:normal inspection, Left thigh +wound Vac Neurologic/Psych:AAOX3, grossly no focal neurological deficits Skin: normal color, warm Lab data as noted below. ASSESSMENT & PLAN: Left thigh cellulitis/abscess S/P Irrigation and debridement of left thigh abscess POD # 2 Venous Doppler: No DVT L LE USD:15 x 9 x 2 cm slightly complex fluid collection located between the subcutaneous fat and thigh musculature. No signs of sepsis Normal lactate levels Wound Culture:MRSA Continue IV Vancomycin while hospitalized Blood Cultures: No growth to date Appreciate Orthopedics Input Needs Home Health and Wound Vac arranged prior to discharge Needs wound clinic and Orthopedics follow up in 2 weeks Plan to DC on 2 weeks of PO Abx continue Wound Vac Pain is controlled DVT Px: SCDs Code Status: Full Code Disposition: Expect to discharge home when stable Plan to discharge when Wound Vac/Home Health be arranged Case management consulted Vital Signs: Date Time Temp Pulse Resp B/P (MAP) Pulse Ox O2 Delivery O2 Flow Rate FiO2 06/14/18 08:40 95 Room Air 06/14/18 07:48 36.6 66 18 138/72 (94) 95 Room Air 06/14/18 07:45 Room Air 06/14/18 07:20 36.7 68 18 131/68 (89) 97 Room Air 06/13/18 23:15 Room Air 06/13/18 22:57 36.7 53 16 145/74 (97) 98 Room Air 06/13/18 15:45 96 Room Air 06/13/18 15:36 36.6 67 16 129/61 (83) 96 Room Air Lab Results: Results Past 24 Hours Test 06/14/18 03:39 Range/Units Creatinine 1.00 0.60-1.40 mg/dl Est Creatinine Clear Calc Drug Dose 131.4 ml/min Estimated GFR () 113.3 Estimated GFR (Non- 97.8 Vancomycin Level Trough 21.4 SEE COMMENT mcg/ml
[2018-06-14] MEDS ORDERED: VANCOMYCIN IV 1,750 MG in SODIUM CHLORIDE 0.9% 500ML 500 ML IV SCH (14:00)
[2018-06-14] MEDS ORDERED: TRD10 PO (14:42)
[2018-06-14] MEDS ORDERED: PANT40TA2 PO (14:42)
[2018-06-14] MEDS ORDERED: SULF800T23 PO (14:42)
--- NOTE | 2018-06-14 14:52 | Discharge Summary ---
Discharge Summary Date of Service Jun 14, 2018. Discharge Summary Admission Date: Jun 10, 2018 at 23:49 Discharge Date: Jun 14, 2018 Discharge Disposition: Home with services Principal Diagnosis: Left thigh abscess S/P debridement Procedures: LE USD: No significant change in the 15 x 9 x 2 cm slightly complex fluid collection located between the subcutaneous fat and thigh musculature. Venous Doppler: There is no sonographic evidence of deep venous thrombosis identified in the right or left lower extremity. Consultations: Orthopedics Pending Studies/Follow-Up: Follow up with your PCP on 06/18/18 at 1:00PM at [facility] for routine Care Follow up with your Surgeon in 2 weeks. Please call [phone] for appointment Follow up with wound clinic as scheduled Continue Wound Vac as advised Complete the antibiotic course as prescribed Seek immediate medical attention if your symptoms reoccur or worsen Medication Reconciliation New Medications: Ketorolac Tromethamine (Ketorolac Tromethamine) 10 Mg Tab 10 MG PO Q8H PRN for Pain for 3 Days, #9 TAB Pantoprazole (Pantoprazole Sodium) 40 Mg Tab 40 MG PO QAM for 14 Days, #14 TAB Continued Medications: Acetaminophen (Tylenol) 500 Mg Tab 1000 MG PO Q6H PRN for Pain, TAB Diphenhydramine Hcl (Benadryl Allergy) 25 Mg Tab 25 MG PO UD PRN for Allergic Reaction TAKE PER PACKAGE DIRECTIONS Sulfa/Trimethoprim (Bactrim Ds 800MG/160MG) Tab 1 TAB PO BID for 14 Days, #28 TAB (This prescription has been renewed) BEGIN 06/09/18 X 10 DAYS Discontinued Medications: Bacitracin (Topical) (Bacitracin) 500 Unit/Gm Oin 1 APPLN TOP BID for 7 Days, #30 GM Cephalexin Monohydrate (Keflex) 500 Mg Cap 500 MG PO QID for 10 Days, #40 CAP BEGIN 06/09/18 X 10 DAYS. Ibuprofen Tab (Motrin) 800 Mg Tab 800 MG PO TIDM PRN for Pain, TAB Admission Information HPI (per Admitting provider): CHIEF COMPLAINT: Left thigh injury and wound infection. HISTORY OF PRESENT ILLNESS: This is a 32-year-old male with no significant past medical history, presents with left thigh wound and infection. The patient was seen in the ER on 06/03/2018 when he had injury with the tractor. 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 He was hit by the bucket of a tractor and pinched between the bucket and the tailgate of another vehicle. He first came to the ER and his laceration was sutured and advised to follow with outpatient orthopedics . Hev saw ortho and he was told to come next week to remove the brent, but again he was having lot of pain and increased erythema and he came to the ER again on 06/08/2018 and CAT scan was done and it showed no abscess and he was prescribed Keflex and Bactrim and sent home, but the swelling is increasing and pain is increasing. He is not ambulating much so he came back today with ultrasound showing 15 x 9cmcm fluid collection.The patient is afebrile and hemodynamically stable. Denies any other problems. No dizziness,no blurred vision, no earache, no runny nose, no sore throat, no difficulty swallowing, no cough, no fever, no chills. No chest pain, no shortness of breath. No nausea, no vomiting, no abdominal pain. Normal bowel and bowel movements. Appetite is okay. Physical Exam (per Admitting): PHYSICAL EXAMINATION: GENERAL: Patient is of moderate build, not in distress. VITAL SIGNS: Temperature 36.7, pulse 94, respiratory rate 18, blood pressure 145/83, oxygen 99% on room air. HEENT: No pallor, no icterus. Pupils equal, round, and reactive to light. NECK: No JVD, no neck masses, no carotid bruits. CARDIOVASCULAR: S1, S2 heard, regular rate and rhythm, no murmur, no gallop. RESPIRATORY SYSTEM: Clear to auscultation bilaterally. No wheezing, no crackles. ABDOMEN: Soft, bowel sounds present. Nontender. No distention. CENTRAL NERVOUS SYSTEM: Cranial nerves II-XII grossly intact. Nonfocal. EXTREMITIES: Right thigh is erythematous and swollen and some mild discharge seen in the suture site. Hospital Course Left thigh cellulitis/abscess S/P Irrigation and debridement of left thigh abscess POD # 2 Venous Doppler: No DVT L LE USD:15 x 9 x 2 cm slightly complex fluid collection located between the subcutaneous fat and thigh musculature. No signs of sepsis Normal lactate levels Wound Culture:MRSA Continue IV Vancomycin while hospitalized Blood Cultures: No growth to date Appreciate Orthopedics Input Needs Home Health and Wound Vac arranged prior to discharge Needs wound clinic and Orthopedics follow up in 2 weeks Plan to DC on 2 weeks of PO Abx continue Wound Vac Pain is controlled DVT Px: SCDs Code Status: Full Code Disposition: Expect to discharge home when stable Plan to discharge when Wound Vac/Home Health be arranged Case management consulted Total time spent on discharge = 36 minutes This includes examination of the patient, discharge planning, medication reconciliation, and communication with other providers. Discharge Instructions Discharge Instructions Date of Service Jun 14, 2018. Admission Reason for Admission: Cellulitis, Laceration Of Left Thigh Discharge Discharge Diagnosis / Problem: Left thigh abscess S/P debridement Discharge Goals Goal(s): Decrease discomfort, Improve function Activity Recommendations Activity Limitations: per Instructions/Follow-up section Lifting Limitations: gradually increase as tolerated Exercise/Sports Limitations: gradually increase as tolerated . Instructions / Follow-Up Instructions / Follow-Up Follow up with your PCP on 06/18/18 at 1:00PM at [facility] for routine Care Follow up with your Surgeon in 2 weeks. Please call [phone] for appointment Follow up with wound clinic as scheduled Continue Wound Vac as advised Complete the antibiotic course as prescribed Seek immediate medical attention if your symptoms reoccur or worsen Current Hospital Diet Patient's current hospital diet: Regular Diet Discharge Diet Recommended Diet: Regular Diet Procedures Procedures Performed: I & D Left Thigh Abscess Pending Studies Studies pending at discharge: no Medical Emergencies . Who to Call and When: Medical Emergencies: If at any time you feel your situation is an emergency, please call 911 immediately. . Non-Emergent Contact Non-Emergency issues call your: Primary Care Provider, Surgeon Call Non-Emergent contact if: you have a fever, your pain is not controlled, your pain is worsening, your pain is unusual for you, your pain is concerning you, wound has increased drainage, wound has increased redness, wound has increased pain, you have any medication questions Seek immediate medical attention if your symptoms reoccur or worsen . . "Provider Documentation" section prepared by Lee Santamaria. . <Electronically signed by Lee Santamaria MD> Signed: 06/14/18 2742 Signed: The status of this report is Signed * If report status is Draft, the document has not been finalized by the responsible provider.
[2018-06-14 15:08] VITALS: BP 138/75; PULSE 57; TEMP 36.7; O2SAT 96
[2018-06-14 15:10] VITALS: BP 138/75; PULSE 57; TEMP 36.7; O2SAT 96
[2018-06-15] MEDS ORDERED: VANCOMYCIN TROUGH ONE (13:30)
[2018-06-21] MEDS ORDERED: TRAM-10 PO (10:20)
== END 2018-06-14 17:30 | disposition home health service (06) | DRG 581 ==
LOC: C.EDB 20:34 → C.MS2W 23:49 → ENRESERV 23:58 → C.MSN 06-12 17:03
PROVIDERS: ADMIT Internal Medicine; ATTEND Internal Medicine
PROC: 0KBR0ZZ Excision of Left Upper Leg Muscle, Open Approach (ICD-10-PCS; principal; 2018-06-12 07:30)
DX: L02.416 Cutaneous abscess of left lower limb (principal); F17.200 Nicotine dependence, unspecified, uncomplicated; W23.0XXA Caught, crushed, jammed, or pinched between moving objects, initial encounter; Y99.0 Civilian activity done for income or pay